=== PATIENT | male | born 1955 | race Caucasian/White ===

== ENCOUNTER 2023-05-12 07:08 | Outpatient (OUT) | payer MEDICARE, OTHER, SELFPAY ==
[2023-05-12 07:58] LABS: Basophils Absolute Auto 0.1 10^3/uL (0.0-0.1); Basophils Percent Auto 0.3 % (0.2-2.0); Eosinophils Percent Auto 0.1 % (0.9-7.0); Hematocrit 47.6 % (42.0-54.0); Hemoglobin 15.7 g/dL (14.0-18.0); Immature Granulocytes Pct Auto 1.1 % (0.0-0.5); Lymphocytes Absolute Auto 1.6 10^3/uL (1.2-3.8); Lymphocytes Percent Auto 8.5 % (20.5-60.0); Mean Corpuscular Hemoglobin 32.9 pg (25.9-34.0); Mean Corpuscular Volume 99.8 fL (80.0-94.0); Mean Platelet Volume 10.9 fL (9.5-13.5); Monocytes Absolute Auto 0.8 10^3/uL (0.3-0.8); Neutrophils Absolute Auto 16.1 10^3/uL (1.4-6.5); Platelet Count 247 10^3/uL (150-450); Red Blood Count 4.77 10^6/uL (4.70-6.10); Red Cell Distribution Width 13.2 % (11.0-15.0); White Blood Count 18.7 10^3/uL (4.0-11.0)
[2023-05-12 11:03] LABS: Estimated Average Glucose 120 mg/dL; Glycohemoglobin A1C 5.8 % (4.5-6.2)
[2023-05-12 13:02] LABS: Alanine Aminotransferase 26 U/L (16-63); Albumin Globulin Ratio 1.2; Albumin Level 3.9 g/dL (3.4-5.0); Alkaline Phosphatase 104 U/L (46-116); Anion Gap 14.8; Aspartate Amino Transferase 20 U/L (15-37); BUN Creatinine Ratio 19.3; Bilirubin Total 0.7 mg/dL (0.2-1.0); Calcium 8.7 mg/dL (8.5-10.1); Carbon Dioxide 27.1 mmol/L (21.0-32.0); Chloride 101 mmol/L (98-107); Chol HDL Ratio 2.4; Cholesterol 164 mg/dL (<=200); Estimated GFR (African America 50 (>=60); Estimated GFR (Non-African Ame 41 (>=60); Free T3 2.55 pg/mL (2.18-3.98); Globulin 3.3 g/dL; Glucose 134 mg/dL (74-106); HDL Cholesterol 69 mg/dL (40-60); Potassium 4.9 mmol/L (3.5-5.1); Sodium 138 mmol/L (136-145); Total Protein 7.2 g/dL (6.4-8.2); Triglycerides 38 mg/dL (<=150); VLDL CHOLESTEROL 7.6 mg/dL
[2023-05-13 10:11] LABS: Insulin 63.6 uIU/mL (2.6-24.9)
== END 2023-05-12 07:09 | disposition home or self-care (01) ==
LOC: LAB 07:17
PROVIDERS: PCP Family Medicine; Visit Provider Family Medicine
DX: M17.9 Osteoarthritis of knee, unspecified (principal); E78.01 Familial hypercholesterolemia; E78.5 Hyperlipidemia, unspecified; I10 Essential (primary) hypertension; R73.09 Other abnormal glucose
CPT/HCPCS: 36415; 80053; 80061; 83036; 83525; 84436; 84443; 84481; 84550; 85025; G0103

== ENCOUNTER 2023-06-26 07:13 | Outpatient (OUT) | payer MEDICARE, OTHER, SELFPAY ==
--- OUTSIDE RECORDS SUMMARY | 2023-06-26 07:17 | XMS_ITS | CCD ---
Author Name Unknown Address [address] [place] [address] Organization [facility] Care Team Providers Care Metallurgical Specialist Name Role Phone ROXANE ., DR LAUREANO Attending Unavailable HOY ., DR LAUREANO Admitting Unavailable HOY ., DR LAUREANO Primary Care Unavailable HOY ., DR LAUREANO Consulting Unavailable HOY ., DR LAUREANO Admitting Unavailable HOY ., DR LAUREANO Primary Care Unavailable HOY ., DR LAUREANO Consulting Unavailable CATALINOY ., DR LAUREANO Attending Unavailable Georgi Betts Primary Care Physician WALE CALIX Attending Unavailable WALE CALIX Admitting Unavailable WALE CALIX Referring Unavailable WALE CALIX Admitting Unavailable WALE CALIX Referring Unavailable WALE CALIX Attending Unavailable WALE CALIX Attending Unavailable WALE CALIX Referring Unavailable Allergies Allergy Classification Reported Allergen(s) Allergy Type Date of Onset Reaction(s) Facility (2 sources) Angiotensin-conv erting enzyme inhibitor agent; Translations: [VERENICE inhibitors] Drug allergy Eruption of skin (disorder) [facility] (2 sources) Sulfamethoxazole ; Translations: [sulfamethoxazol e] Drug Allergy Fever (finding), Eruption of skin (disorder) [facility] Medications Current Medications Medication Drug Class(es) Dates Sig (Normalized) Sig (Original) 8 hr acetaminophen 650 mg extended release oral tablet (1 source) Start: 04-29-2018 take 2 tablets by mouth twice daily acetaminophen 650 mg oral tablet, extended release 1,300 mg = 2 tab(s), Oral, BID, Refills(s) 0, Arthritis Start Date: 04/29/18 Status: Ordered aspirin 81 mg delayed release oral tablet (1 source) Platelet Aggregation Inhibitor, Nonsteroidal Anti-inflammatory Drug Start: 04-29-2018 take 1 tablet by mouth once daily aspirin 81 mg Oral EC Tab 81 mg = 1 tab(s), Oral, Daily, Refills(s) 0, Prophylaxis Start Date: 04/29/18 Status: Ordered atorvastatin 10 mg oral tablet (1 source) HMG-CoA Reductase Inhibitor Start: 04-29-2018 take 1 tablet by mouth once daily atorvastatin 10 mg Tab 10 mg = 1 tab(s), Oral, Daily, Refills(s) 0, High cholesterol Start Date: 04/29/18 Status: Ordered Fiber Tab (1 source) Start: 05-20-2018 take 1 tablet by mouth once daily Fiber Tabs 1 tab, Oral, Daily, Constipation Start Date: 05/20/18 Status: Ordered doxepin hydrochloride 25 mg oral capsule (1 source) Tricyclic Antidepressant Start: 04-29-2018 take 1 capsule by mouth once daily at bedtime doxepin 25 mg Cap 25 mg = 1 cap(s), Oral, Once a day (at bedtime), Refills(s) 0, Sleep Start Date: 04/29/18 Status: Ordered furosemide 20 mg oral tablet (1 source) Loop Diuretic Start: 04-29-2018 take 1 tablet by mouth once daily furosemide 20 mg Tab 20 mg = 1 tab(s), Oral, Daily, Refills(s) 0, diuretic/water pill Start Date: 04/29/18 Status: Ordered meloxicam 15 mg oral tablet (1 source) Nonsteroidal Anti-inflammatory Drug Start: 04-29-2018 take 1 tablet by mouth once daily meloxicam 15 mg Tab 15 mg = 1 tab(s), Oral, Daily, Refills(s) 0, Arthritis Start Date: 04/29/18 Status: Ordered 24 hr metoprolol succinate 200 mg extended release oral capsule (1 source) beta-Adrenergic Raquel Start: 04-29-2018 take 1 capsule by mouth at bedtime metoprolol succinate 200 mg oral capsule, extended release 200 mg = 1 cap(s), Oral, Bedtime, Refills(s) 0, High blood pressure Start Date: 04/29/18 Status: Ordered predniSONE 5 mg oral tablet (1 source) Start: 04-29-2018 take 1 tablet by mouth once daily predniSONE 5 mg Tab 5 mg = 1 tab(s), Oral, Daily, Refills(s) 0, Arthritis Start Date: 04/29/18 Status: Ordered Problems Active Problems Problem Classification Problem Date Documented Date Episodic/Chronic Diabetes mellitus without complication (2 sources) Impaired fasting glucose; Translations: [Other abnormal glucose] Onset: 05-26-2022 Episodic Disorders of lipid metabolism (7 sources) Familial hypercholesterolemia; Translations: [Hyperlipidemia, unspecified] Onset: 05-22-2022 Chronic Essential hypertension (3 sources) Essential (primary) hypertension; Translations: [Essential hypertension] Onset: 09-17-2022 Chronic Gout and other crystal arthropathies (2 sources) Gout, unspecified; Translations: [Gout] Chronic Osteoarthritis (2 sources) 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; Translations: [Polyosteoarthritis, unspecified] Chronic Other aftercare (1 source) Follow-up orthopedic assessment; Translations: [Aftercare following joint replacement surgery] Chronic Other connective tissue disease (1 source) Artificial knee joint present; Translations: [Presence of left artificial knee joint] Chronic Other nervous system disorders (1 source) Postoperative pain ; Translations: [Other acute postprocedural pain] Episodic Other non-traumatic joint disorders (1 source) Pain in left knee; Translations: [Pain of left knee joint] Episodic Past or Other Problems Problem Classification Problem Date Documented Da te Episodic/Chronic Other non-traumatic joint disorders (1 source) Pain in unspecified joint; Translations: [PAIN IN UNSPECIFIED JOINT] Onset: 05-26-2022 Episodic Other screening for suspected conditions (not mental disorders or infectious disease) (1 source) Encounter for screening for malignant neoplasm of prostate; Translations: [ENC SCREEN MALIG NEOPLASM PROSTATE] Onset: 05-26-2022 Episodic Results Test Name Value Interpretation Reference Range Facil ity OT - Assessmentson 3 OT - Assessments [id number] 5#1.00CD:127 Normal [facility] OT - Home Exercise Programon 01-09-2023 OT - Home Exercise Program [id number] 5#1.00CD:127 Normal [facility] OT - [place] 01-07-2023 OT - Orders [id number]# 1.00CD:127 [facility] OT - Assessmentson 3 OT - Assessments [id number] 4#1.00CD:127 [facility] OT - Consentson 12-31-2022 OT - Consents [id number] 8#1.00CD:127 [facility] Consent for Treatmenton 12-13 Consent for Treatment [id number] #1.00CD:127 [facility] OT - [place] 12-29-2022 OT - Orders [id number] #1.00CD:127 [facility] PT - Progress Noteson 2022 PT - Progress Notes [id number] #1.00CD:127 [facility] PT - Assessmentson PT - Assessments [id number] #1.00CD:127 [facility] PT - Progress Noteson 2022 PT - Progress Notes [id number] 2#1.00CD:127 [facility] PT - Progress Noteson 2022 PT - Progress Notes [id number] 67#1.00CD:127 [facility] PT - Home Exercise Programon 10-16-2022 PT - Home Exercise Program [id number] #1.00CD:127 [facility] PT - [place] 10-16-2022 PT - Orders [id number] 0#1.00CD:127 [facility] Coding Summary.on 10-14-2022 Coding Summary. CD:[id number] Ww+PGhlYWQ+QL1MBFMzI 84cnXHytS5qI3IPXPjWT ywgQVBQTElOSyIgbmFtZ S4xlJVhJXQg IC8+WM3pQAClVqrsrURz k2O8cXP2F36din9hMRxh uRJ5WMBeBlDywdrgo5ip lZr9VHrlDsdbUtEf QWLoaW17ASE5xB38Nf37 fYFzdFUyn2zamUq4GjLs QGIhUWV1gRunCTbxx1Om CSNsG09byWVbs9G2 IGNvbGxhcHNlOyBlbXB0 oW1rQAxpjojbm2alafhm Inj8ia66iSVss3A1wYJ6 W8MwlyF6KRKweFWz YtapfAXEdU6tbiedg6hf wedcXwEvQXSlGSy0JBz2 QOPwaJoyQjQwGS58SCI4 CSWzttBeV7OnHLWk iGtsEmC1k9B9Dr1ZB9NI GqocM1NRJUJSBUlejJJ+ IV74cp38H0CkDzrkLeq7 DSYqBNK6rQP3uN3c SAUtDGuje3W1oXA5S2Md raRxtb0zj7cfKXObJGqz E84duPRjh9Z8SHSuvZU2 GHCusRuvHgZkxA13 Oyc+RJBkpOode9XlMpuv i8tud1zjuPw8RtvnEMTb bdGjnQjoURG4f8QsGc5x CYUgjQZ6iDF7zJ0k HgMqDrU6JRlqU211YmNe nLBsFysbI31wH6AbmYL+ CCPdIfy9LVWqcJjrKO3g I8XxJCAbgfkkxMSh eEgoVB9cBWMehgalNYKj xN8qKOEjP9j8KfOhQvW4 QWjmM3JcAAVadetlHt94 fB3xLnRoGlB4KCzu M5GywxI3BLVeiVTtABsj YFA7I52vp7K2CGMfUWJo ULD1nQM3pV7adJweyize bGVmdDsgdmVydGlj QAgnKRhmE914BJQmgWgd PkNvZGluZyBEYXRlOiAg MDUvMDIvMjAyMzwvdGQ+ GYQtORW2gZpyOTGa dGNgERavIq4uoKtetLka AH3fBYRlieqlJDUlbZ3a FOFebIUviOeyPX1kAMCa scime140AhIqBGO0 IHCexPVpC8QaqP1tVjDv CMNcIPKoA3BbrVZrPAyd P363TZkoJvC8DMDitlFl S5WeIQFjxYzvBrT8 i0T5Jr9Nc8HxyyujQ7Jg nSLoJiOcCzwbZXv6N6Lw PjwvdHI+ES52MFDeTM81 MWv7CPM0pHdhTWmj JIZtE9BxiY4gQrSzPSPi ZGRkOyc+PHRhYmxlIHdp ZHRoPScxMDAlJyBzdHls PX3uXo1wWILyIKVi gGxdwWNkBrXjj2rdEBIk NLxyNK0vkLykL0ZdaAO7 WZPpw4k9Vr49J19wR3Bm dXA+LDOdcAU4vBE9 vN1zWpCrMrZ9KThiB615 NzBzcJYxUjphl2iqq5qp vCm4DmN1UKJfmtVzdMrh JTT0j6RwUg97C37q IHdpZHRoPSIxNSUiIHZh sUtqpp6bqE3sDc7+PGNv tZJ0dPL8tK9xRuAuVaE4 UCexY832NoXwyLIx Lamfv0qov7oohAa5DdUe RNOgygGdqRmaWPD2h5Yz Wp26G7XrvTljy3DeZuo5 vs36eSIoh0M9qNY2 R8GoNEGjffzvuAOvoQhj BS8vEKMolcmwUUQvuO3t CHYtQ4n0RcJqPaO9HVpx I0TosbB5GAAtxLRv IEFviCHOeV0bgrpfc7pm lfivTwHhEHOeJJu8SWn5 MTJezUraZvEwEGW2AoQ3 XJO0oREovZ6vaIxn vhzyuN4pIwp+SZO2lTId nYCSAI7oOtjoiJI+PHRk QRB5gEpcCGybAJFpfU6a ALQsC8q9HoZoEyN6 DRkhY7MvddH8QEVwyFEg LZSmgHQLtQ1vnupsj4sq yoxbFnChGVNjASq6RRx7 LWFsaWduOiBsZWZ0 WlN0MHI4kJRxzE1fiZzq avxnbW1tIxq+QmlydGgg LFF7ZVr6V5BwCxg6IPKf qVxoDK3stYGbARwd Bi6ziKvilMisBM7sXSQj lausj528AlObo9ewCBZi gORbOArzNJR4K98ov9I2 SUHvXTVlXYC4eJT2 lB2olFfhxnfdnPPtuUzx bdJegMnbIXloNWagJ649 VHUvgGynYdMdBSo4W2Se Oym4ZCOxyRmwOS6m aSXuGLzbXx0akMgibItq EG3fCMEwtkjuz172RxRh t6ayBQGkiVKcJFycLXO2 E91du5I7YKThNBSw MYB7oAM2lJ7gdCpmtwbt bGVmdDsgdmVydGljYWwt DQysW403QASztIbpFyRo sGy1A5ExJvu0GCLh bLchAF7dnCUlVHahBs2c iVwwsSatPO1sFFRtzzdn j382XoQwy1adGFKljRFs WLdxLSF5O83uo3Z5 RKCaKLXjLNT0jEN3dS9b bGlnbjogbGVmdDsgdmVy xFgbTQvtVHtuC412OLTh cDsnPlBhdGllbnQg NZmbTKp4M8EvDczrhDF+ UW69AXHeCC07tVYkoNQp t8jziJg8CqBtJFNrDXO3 bIlcUMvnx9ShHEVo D25hiNAxb0B6AKMgwMow zQPcLlDjkTD0nA0iGQhv kwpua1xzdzxxQruvi6rm ir92sA48X11yCIaj ZHRoPSIzMCUiIHZhbGln ob0geN0ePu0+PGNvbCB3 yNM6aM1xFUEtPsN5NFkf O428KoKpqVZzWisy a8jmh9sjwKp8AlT5WLGl paQjyQmnNCY1r3LuAf37 S33eASbjTBFbOIJsGIXy NNCcbHffxg2ymY7e Ii8+FXPluXQ9jRJ6xI0s MmNpXgQ8LQokQ076KoPw jTAmMsqyI41kZ7KmgTK+ SAYnPir1EDCvsLam LR5qlJXkCIazXx3lNEV0 SzPkDcCgAUbsS5MhZQZr npwvuamlaUX4JPAdMQOe uY27Yx5jpXffLGPk ySHIgR0pqhoqb0bxibpj FaTgDERqREx4AGy2RXBh rNtmOjXzQFO9EzT4MWW7 gJLygW1ldMblvuuu uY3bX8VcLVThzvuwRw30 hA4kQgSgOgQ5GVuwRot+ UklDSEFSRCwgSkFNRVMg UjwvdGQ+PHRkIHN0 zIzhKTyjMZPvhJ7kPLMa K5e7ItQwNkN5TIeoI6Fx HSWsoondTi45uQ8pQfJd CzD9EAypN6BifnQ6 YUXddWIwZGlpTWR4P25w q7B6VPAmSVCkEDW4gVP9 nJ0pdLtslvmboKUggQbo dmVydGljYWwtYWxp J374BAUlmYjzYzD0RbS6 JgT7MYC9P2GdOif8XQDh kNjdIL7cfWEgLTnwVq8c rBizoPdcDW1mYCVw kfqwTUHwrM8oBTJvoLQh pHerYS5jEENgtxsjy201 YvLlXRT9HEQidGJlW9Ep mN6pDkQsLNDgJEBv D4OdfTMgVDdeN909FWrs YgH8XNLjnfUsX6HkDYKr wBsyInH2g5O4Zv53MLVI ZWFyczwvdGQ+PHRk NKJ5sLhaJKyeUAJgwM6t NQWmB5y1PzWlIoK1PUbm E5ZoZJPtvizoQw87eQ0c YaTfSdP8JElfC0Iu wxM5RBFevMLrKGnuMMT9 X39vk4A5NFYpGCFoCEM8 pZL0rF2buSqxologoACq dDsgdmVydGljYWwt HYafR320JJFuqLaqBe0w fVU7C6EyXlx1DHXsbMoi EC8vtDGdPVgxBp0eyCtf rIjlRC1kQAQbvvey RCGkiQ2tOAHxlYHysRyh GS3gJGUfvpbyr155AeZp GSF6LJXffTFlN4ZrsR3a JgYyEIFcXMVdU8Mr wMOgWCnjX480XNjwVvB2 PFHttvRzI2PiLNJbgFlu RtB9o9H5Fc5DLTE2bdHs zey2Z1VeXyaqkDB+ RL94PETlNV74tXCwsHVw v4rqfZw5VgPuIHVwYMN2 iUodRTpgz2WyCWMtX89w oTFlv6H4FTQtcGtb bRTzVqViuBR8kW0qWWxv bjpor3pwqcegUxmet0vj me07iM64C71dKChtPTGg PSIzMCUiIHZhbGln jr6rgO8bYx9+PGNvbCB3 cXG5eT7bUvThKqE5OZix K891HtHwrNRhAtmdh5me m0brtXw2ChSuKVTs hmTwcUgySIU0y4LmVq97 U39sGLtxJVHfJAOpQPFu SUKeyAbmpk9lvZ2eSb9+ MI8fy7ukoc42lC46 dHI+JBDhLKU2cRteOKss FGYspV3qCNyyEuA4YAJy HyKooY58yBElRUmnVt9j yCcfxCqlGW2rTOZo gclvg184EtYpf7zzOKVj dDQsFJxvPVS9A37hd7F0 KFJkCYXaAUX0gCB8oJ7d bGlnbjogbGVmdDsg apKhrKgwRLcmSIuyW758 YVChlAuuJdNhtAUgW1dn knWOQF9nYjdcuAA+PHRk OBJ6lLnsLBlzZDFu nC2rNCMnF7y8AmSdYhW0 TBbyT6YgpzD2QWEvhQJj EUQfmQGKcU1eyrpkm8gf cjogIzAwMDAwMDt0 JUk7NCMhcSmpSlHwNWT3 YjR8UUH9vIJmoF4zgNea vjvlrZ2qPnz+RklOOjwv dGQ+FFGgADH9kDbh WEpoWSJsvC8qYRBuM4o7 PzDlVlX1TXraB6IhtvY4 HVLvzHVqUCFuhUWQfB7i vssyw4muptoaFlDw PVUrWEb4FZv0VOMsoUsg DdQuTSB0CwK2VBU5cMVd lC6wtYedezggiN7aItq+ TVJOOjwvdGQ+PHRk KGR0oPupVPssTOLiqI2v JMCvZ8k6PrHmGzZ0STji J7HpsmD7WCClyOLhKEUu oJAClL7vdpsqg8an jjprKyEzJGCjNBn4GId3 JVNyhMntOdDdCDM2VbQ6 RPM4hYPbwM4bxGrwkfbj lY3dDki+ZDZ6EVT1 AW43AD79A2OkGtfsyEDl bGU+PHRhYmxlIHdpZHRo ACrlKQLwGjFzqCbmBP2p Tr2eHQSqLUAolAor cHNlOiBj (more content not included)... Normal [facility] PT - Assessmentson PT - Assessments [id number] #1.00CD:127 Normal [facility] PT - Consentson 10-14-2022 PT - Consents [id number] #1.00CD:127 [facility] Consent for Treatmenton Consent for Treatment [id number] #1.00CD:127 [facility] PT - [place] 10-13-2022 PT - Orders [id number] 78#1.00CD:127 [facility] CBC AUTO DIFFon 09-11-2022 BASO # 0.2 103/ul Critically high 0.0-0.[address] [facility] Comment on above: Performed By: #### L IPID, CMP, URIC #### [facility] [address] [place] [address] Dr. Mark Macdonald Basophils/100 WBC (Bld) 1.6 % Normal 0.2-2.0 [facility] Comment on above: Performed By: #### L IPID, CMP, URIC #### [facility] [address] [address] [address] Mark Macdonald EO # 0.8 103/ul Critically high 0.0-0.[address] [facility] Comment on above: Performed By: #### L IPID, CMP, URIC #### [facility] [address] [address] [address] Mark Macdonald Eosinophils/100 WBC (Bld) 7.4 % Critically high 0.9-7.0 [facility] Comment on above: Performed By: #### L IPID, CMP, URIC #### [facility] [address] [place] [address] Dr. Mark Macdonald Erythrocyte distribution width (RBC) [Ratio] 13.2 % Normal 11.0-15.0 [facility] Comment on above: Performed By: #### L IPID, CMP, URIC #### [facility] [address] [place] [address] Dr. Mark Macdonald Hematocrit (Bld) [Volume fraction] 45.9 % Normal 42.0-54.0 [facility] Comment on above: Performed By: #### L IPID, CMP, URIC #### [facility] [address] [place] [address] Dr. Mark Macdonald Hemoglobin (Bld) [Mass/Vol] 14.9 g/dL Normal 14.0-18.0 [facility] Comment on above: Performed By: #### L IPID, CMP, URIC #### [facility] [address] [place] [address] Dr. Mark Macdonald IG # 0.12 10e3/ul Critically high 0.00-0.03 [facility] Comment on above: Performed By: #### L IPID, CMP, URIC #### [facility] [address] [place] [address] Dr. Mark Macdonald IG % 1.1 % Critically high 0.0-0.5 [facility] Comment on above: Performed By: #### L IPID, CMP, URIC #### [facility] [address] [place] [address] Dr. Mark Macdonald LYMPH # 2.0 103/ul Normal 1.2-3.8 [facility] Comment on above: Performed By: #### L IPID, CMP, URIC #### [facility] [address] [place] [address] Dr. Mark Macdonald Lymphocytes/100 WBC (Bld) 19.1 % Critically low 20.5-60.0 [facility] Comment on above: Performed By: #### L IPID, CMP, URIC #### [facility] [address] [place] [address] Dr. Mark Macdonald MANUAL DIFF REQ NO Normal [facility] Comment on above: Performed By: #### L IPID, CMP, URIC #### [facility] [address] [place] [address] Dr. Mark Macdonald MCH (RBC) [Entitic mass] 30.8 pg Normal 25.9-34.0 [facility] Comment on above: Performed By: #### L IPID, CMP, URIC #### [facility] [address] [place] [address] Dr. Mark Macdonald MCHC (RBC) [Mass/Vol] 32.5 g/dL Normal 29.9-35.2 [facility] Comment on above: Performed By: #### L IPID, CMP, URIC #### [facility] [address] [place] [address] Dr. Mark Macdonald MCV (RBC) [Entitic vol] 94.8 fL Critically high 80.0-94.0 [facility] Comment on above: Performed By: #### L IPID, CMP, URIC #### [facility] [address] [place] [address] Dr. Mark Macdonald MONO # 0.9 103/ul Critically high 0.3-0.[address] [facility] Comment on above: Performed By: #### L IPID, CMP, URIC #### [facility] [address] [place] [address] Dr. Mark Macdonald Monocytes/100 WBC (Bld) 8.8 % Normal 1.7-12.0 [facility] Comment on above: Performed By: #### L IPID, CMP, URIC #### [facility] [address] [place] [address] Dr. Mark Macdonald NEUT # 6.6 103/ul Critically high 1.4-6.[address] [facility] Comment on above: Performed By: #### L IPID, CMP, URIC #### [facility] [address] [place] [address] Dr. Mark Macdonald Neutrophils/100 WBC (Bld) 62.0 % Normal 43.0-75.0 [facility] Comment on above: Performed By: #### L IPID, CMP, URIC #### [facility] [address] [address] [address] Mark Macdonald Platelet mean volume (Bld) [Entitic vol] 10.9 fL Normal 9.5-13.5 [facility] Comment on above: Performed By: #### L IPID, CMP, URIC #### [facility] [address] [address] [address] Mark Macdonald PLT 238 103/ul Normal 150-450 [facility] Comment on above: Performed By: #### L IPID, CMP, URIC #### [facility] [address] [address] [address] Mark Macdonald RBC 4.84 106/ul Normal 4.70-6.10 [facility] Comment on above: Performed By: #### L IPID, CMP, URIC #### [facility] [address] [address] [address] Mark Macdonald WBC 10.6 103/ul Normal 4.0-11.0 [facility] Comment on above: Performed By: #### L IPID, CMP, URIC #### [facility] [address] [address] [address] Mark Macdonald FREE T3on 09-11-2022 FREE T3 2.85 pg/mlL Normal 2.18-3.98 [facility] Comment on above: Performed By: #### C MP, FT3, T4, LIPID, TSH #### [facility] [address] [address] [address] Mark Macdonald GLYCOHEMOGLOBIN A1Con 2022 ADA RECOMMENDATION SEE BELOW Normal [facility] Comment on above: Result Comment: ADA RECOMMENDED LIMIT 4.0 - 6.0 ADA THERAPEUTIC TARGET < 7.0 ACTION SUGGESTED > 7.0 Performed By: #### L IPID, CMP, URIC #### [facility] [address] [place] [address] Dr. Mark Macdonald Glucose [Mass/Vol] 134 mg/dL Normal [facility] Comment on above: Performed By: #### L IPID, CMP, URIC #### [facility] [address] [address] [address] Mark Macdonald HbA1c (Bld) [Mass fraction] 6.3 % Critically high 4.5-6.2 [facility] Comment on above: Performed By: #### L IPID, CMP, URIC #### [facility] [address] [address] [address] Mark Macdonald LIPID PROFILEon 09-11-2022 CHOL-HDL RATIO NORM SEE BELOW Normal [facility] Comment on above: Result Comment: 3.3 - 4.4 LOW RISK 4.4 - 7.1 AVERAGE RISK 7.1 - 11.0 MODERATE RISK >11.0 HIGH RISK Performed By: #### C MP, FT3, T4, LIPID, TSH #### [facility] [address] [address] [address] Mark Macdonald Cholesterol [Mass/Vol] 154 mg/dL Normal <=200 [facility] Comment on above: Performed By: #### C MP, FT3, T4, LIPID, TSH #### [facility] [address] [address] [address] Mark Macdonald Cholesterol in HDL [Mass/Vol] 61 mg/dL Critically high 40-60 [facility] Comment on above: Performed By: #### C MP, FT3, T4, LIPID, TSH #### [facility] [address] [address] [address] Mark Macdonald Cholesterol in LDL [Mass/Vol] 80.4 mg/dL Normal [facility] Comment on above: Performed By: #### C MP, FT3, T4, LIPID, TSH #### [facility] [address] [address] [address] Mark Macdonald Cholesterol.total/Cho lesterol in HDL [Mass ratio] 2.5 {ratio} Normal [facility] Comment on above: Performed By: #### C MP, FT3, T4, LIPID, TSH #### [facility] [address] [address] [address] Mark Macdonald HDL NORMAL > or = 60 mg/dl - LOW CARDIOVASCULAR RISK <40 mg/dl - HIGH CARDIOVASCULAR RISK Normal [facility] Comment on above: Performed By: #### C MP, FT3, T4, LIPID, TSH #### [facility] [address] [address] [address] Mark Macdonald LDL CALC NORMAL SEE BELOW Normal [facility] Comment on above: Result Comment: <100 mg/dl OPTIMAL 100 - 129 mg/dl NEAR OR ABOVE OPTIMAL 130 - 159 mg/dl BORDERLINE HIGH 160 - 189 mg/dl HIGH >190 mg/dl VERY HIGH Performed By: #### C MP, FT3, T4, LIPID, TSH #### [facility] [address] [address] [address] Mark Macdonald Triglyceride [Mass/Vol] 63 mg/dL Normal <=150 [facility] Comment on above: Performed By: #### C MP, FT3, T4, LIPID, TSH #### [facility] [address] [address] [address] Mark Macdonald VLDL CALC 12.6 mg/dL Normal [facility] Comment on above: Performed By: #### C MP, FT3, T4, LIPID, TSH #### [facility] [address] [place] [address] Dr. Mark Macdonald PROF 14(COMP METB)on 023 Albumin [Mass/Vol] 3.8 g/dL Normal 3.4-5.0 [facility] Comment on above: Performed By: #### C MP, FT3, T4, LIPID, TSH #### [facility] [address] [place] [address] Dr. Mark Macdonald Albumin/Globulin [Mass ratio] 1.3 {ratio} Normal [facility] Comment on above: Performed By: #### C MP, FT3, T4, LIPID, TSH #### [facility] [address] [address] [address] Mark Macdonald ALP [Catalytic activity/Vol] 105 U/L Normal 46-116 [facility] Comment on above: Performed By: #### C MP, FT3, T4, LIPID, TSH #### [facility] [address] [address] [address] Mark Macdonald ALT [Catalytic activity/Vol] 20 U/L Normal 16-63 [facility] Comment on above: Performed By: #### C MP, FT3, T4, LIPID, TSH #### [facility] [address] [place] [address] Dr. Mark Macdonald Anion gap [Moles/Vol] 13.1 mmol/L Normal Th e [facility] Comment on above: Performed By: #### C MP, FT3, T4, LIPID, TSH #### [facility] [address] [place] [address] Dr. Mark Macdonald AST [Catalytic activity/Vol] 18 U/L Normal 15-37 [facility] Comment on above: Performed By: #### C MP, FT3, T4, LIPID, TSH #### [facility] [address] [place] [address] Dr. Mark Macdonald Bilirubin [Mass/Vol] 0.8 mg/dL Normal 0.2-1.0 [facility] Comment on above: Performed By: #### C MP, FT3, T4, LIPID, TSH #### [facility] [address] [place] [address] Dr. Mark Macdonald Calcium [Mass/Vol] 9.2 mg/dL Normal 8.5-10.1 [facility] Comment on above: Performed By: #### C MP, FT3, T4, LIPID, TSH #### [facility] [address] [place] [address] Dr. Mark Macdonald Chloride [Moles/Vol] 101 mmol/L Normal 98-107 [facility] Comment on above: Performed By: #### C MP, FT3, T4, LIPID, TSH #### [facility] [address] [place] [address] Dr. Mark Macdonald CO2 [Moles/Vol] 30.1 mmol/L Normal 21.0-32.0 [facility] Comment on above: Performed By: #### C MP, FT3, T4, LIPID, TSH #### [facility] [address] [place] [address] Dr. Mark Macdonald Creatinine [Mass/Vol] 1.24 mg/dL Normal 0.70-1.30 [facility] Comment on above: Performed By: #### C MP, FT3, T4, LIPID, TSH #### [facility] [address] [place] [address] Dr. Mark Macdonald EGFR-AF SAUDI ARABIAN >60 Normal >=[address] [facility] Comment on above: Performed By: #### C MP, FT3, T4, LIPID, TSH #### [facility] [address] [place] [address] Dr. Mark Macdonald EGFR-NON AF SAUDI ARABIAN 58 mL/min/1.73m2 Critically low >=60 [facility] Comment on above: Performed By: #### C MP, FT3, T4, LIPID, TSH #### [facility] [address] [place] [address] Dr. Mark Macdonald Globulin (S) [Mass/Vol] 3.0 g/dL Normal [facility] Comment on above: Performed By: #### C MP, FT3, T4, LIPID, TSH #### [facility] [address] [place] [address] Dr. Mark Macdonald Glucose [Mass/Vol] 130 mg/dL Critically high 74-106 [facility] Comment on above: Performed By: #### C MP, FT3, T4, LIPID, TSH #### [facility] [address] [place] [address] Dr. Mark Macdonald Potassium [Moles/Vol] 5.2 mmol/L Critically high 3.5-5.1 [facility] Comment on above: Performed By: #### C MP, FT3, T4, LIPID, TSH #### [facility] [address] [place] [address] Dr. Mark Macdonald Protein [Mass/Vol] 6.8 g/dL Normal 6.4-8.2 [facility] Comment on above: Performed By: #### C MP, FT3, T4, LIPID, TSH #### [facility] [address] [place] [address] Dr. Mark Macdonald Sodium [Moles/Vol] 139 mmol/L Normal 136-145 [facility] Comment on above: Performed By: #### C MP, FT3, T4, LIPID, TSH #### [facility] [address] [place] [address] Dr. Mark Macdonald Urea nitrogen [Mass/Vol] 21.0 mg/dL Critically high 7.0-18.0 [facility] Comment on above: Performed By: #### C MP, FT3, T4, LIPID, TSH #### [facility] [address] [place] [address] Dr. Mark Macdonald Urea nitrogen/Creatinine [Mass ratio] 16.9 mg/mg Normal [facility] Comment on above: Performed By: #### C MP, FT3, T4, LIPID, TSH #### [facility] [address] [place] [address] Dr. Mark Macdonald T4on 09-11-2022 T4 [Mass/Vol] 7.80 ug/dL Normal 4.50-12.10 [facility] Comment on above: Performed By: #### C MP, FT3, T4, LIPID, TSH #### [facility] [address] [place] [address] Dr. Mark Macdonald TSHon 09-11-2022 TSH 2.031 uIU/mL Normal 0.358-3.740 [facility] Comment on above: Performed By: #### C MP, FT3, T4, LIPID, TSH #### [facility] [address] [place] [address] Dr. Mark Macdonald PT - Assessmentson 3 PT - Assessments [id number] 3#1.00CD:127 Normal [facility] PT - Home Exercise Programon 08-22-2022 PT - Home Exercise Program [id number] 5#1.00CD:127 Normal [facility] PT - Progress Noteson 2022 PT - Progress Notes [id number] #1.00CD:127 Normal [facility] PT - Assessmentson 3 PT - Assessments [id number] 3#1.00CD:127 [facility] PT - Assessmentson PT - Assessments [id number]# 1.00CD:127 [facility] PT - Home Exercise Programon 07-23-2022 PT - Home Exercise Program [id number] 4#1.00CD:127 [facility] PT - Home Exercise Program [id number]# 1.00CD:127 [facility] PT - Progress Noteson 2022 PT - Progress Notes [id number]# 1.00CD:127 [facility] PT - Progress Notes [id number]# 1.00CD:127 [facility] PT - Home Exercise Programon 07-11-2022 PT - Home Exercise Program [id number] 2#1.00CD:127 [facility] PT - Home Exercise Programon 07-08-2022 PT - Home Exercise Program [id number] 4#1.00CD:127 [facility] Coding Summary.on 07-03-2022 Coding Summary. CD:[id number] Gh0bWw+PGhlYWQ+PE1FV XJuT57jyFAbeR9KW0vNU Q5DFGFOMGYUHH4ZEH3uu DF9GRxqW6QclrBr WlepmBEfXX58YHn8YRF8 xAjjRNjnqK8seCQcK6j7 LaVaFA23mB35TVewIZTu ErM5BqByxnhftLYm U1qyJiAnmHLhEjn+PHRh YmxlIHdpZHRoPScxMDAl JfXnjCxhVV0wUv7uLEYo LWNvbGxhcHNlOiBj v8lnEFMxUIogYQ6ddNst G0NntTO3NLEoz6r2Xd58 dHI+HQStYST1iLdqBWla i841AxQbi0ubCSK6 pKPgYFggDZL6W17en3B5 WSNcLTAsTZS4hQK3aP8r sVxwbufyL4GnqCGrQiO3 IBU5rNNeyA4zmXgp trmdrK4zHue+Q79XUF9K GRKCWP8XXze8X0QzCwgh dHI+AC54RMWjDS31uILl wJJyl6ohxMh9WyIy JTGyMMU2dEjqEJxoh8Nc IRLoI46ofHWao3P1ZWKb rHhtlBTcDuYkfWK9qH5t ZWraghwhp1wmvaqx Qmdei3hirc38lB49U45v PCohGRXzEND7ROCqEFQl xEnagr5eoH4gLy6+IDxj z5mul9kwpLa6KqTk BPZcuzTiwJucLFU9b5Eg La76U2PybCccm4KdPjr2 uq71xZWdn8X7iRZ4IPdm QYCtvV9rDKdhUxS3 MDViEpOboQ38xWIjGUjk Bx5doWskaFcdEO8yXNNg numqMLEllM3iLAPhvCXa pXewQU5wBNFqjswu r623KfWwAIV4XNHhaUKa E2GigE6tHyYtVZSzJIQf M3UuoXOyVWgzS627AScb NnF6KASrniEkG7Cg UAHbjFgyRoL1w7R4Da1O a6EsvjmbYJH6TNwgGXYs GeB0BwHrDfV9N5FeLxx5 FNElwAtxUN0zL3Qv YQIdqqyyvtgyoNO9PLVx MGZkbE34jZDeUEznOb3z v0B2v052RNWwJMUpmQ70 Yd4rxDfqNWScnFSZ vJ6fveexe8ihwvriSnRt QBSlCIa2SPt8UYLqeCrx RoMyYFS5RbK7SKF6uECq jN3egReaoccawF1d Oyc+J76yuS1nMLN3SJZ2 xwszDIHupvFoNO41AM80 K0VwOcjeuTNfqBM+PGRp zxPykEkjPE3eQsYe i8und4HaEZerC0QnCRAc ZPqgVkb3JJLtGQJ6eNZ2 pR6eFEUuNVkdi5T0kQM5 R1JrbbTdpo4hu0hc XVFoMSduB32nbGBit5E5 TEJxeGL0PHUnyFuqRdEn cF18Rbr+DAUevDkdm5Vo Frzaq2wme2qoiZr5 IjMwJSIgdmFsaWduPSJ0 d4PzVl31O76yAQjcJXDq TWTuBJOyKHTxrJetmo5q dO0bVe7+PGNvbCB3 jZN1hG0kZUEsFuY8KKbg P752IjWodOEzMchpn9ys l4bqoGj9UpIsBDLpobDt rOqzASP7w2XeBj46 K45aSVgqYTZjPFGpGDMl TKKijHwkur1sqP7nUa0+ LX9dn1jyaa95iV59qUA+ FDGvMOJ4gXjhUAkk DORrzT2aVXqyLvT4UUPz IvLlwH87rRFvXFopRg8i eEebvUoaQE0hYFJaoluh a163GuYny2alHUMq mJHxAOtcBLQ4W03rr6M7 NFAbJPCrTFO3mHG6dP5m bGlnbjogbGVmdDsgdmVy fHllWLknHYfdJ513 IHRvcDsnPlBhdGllbnQg GgXdXGx2V0JfDnj4HSHj sOhtSX2bhUKcZEnaYy4t fMaoxChuLE2tEXGb upaxi668KxCbu9rtVHMp qGWxYQyuODO9Q33fr2U6 SOZbNAYuVUF8sBE4rC4v bGlnbjogbGVmdDsg beKomGgsBBqjHGykI252 IHRvcDsnPkJpcnRoIERh mMI8VF73OP79kABgo6W9 nLW2H6WcSLBendts bjiuuMW8DTKrCMXzyQ46 Pz4zvFhsZy8mNLChVER1 LSHpkALaR6EafI6xNjSy UBNiYAXlC5JrqZFy IVuiE518OJmrAdE1MFRa ldOxE3MfPRYktTceXuX8 j8X8Xz9AQ6O9YT64JH57 xLFni7O2xAM3E6Zu LCUeqinlchabjXH3VTWm BQGqnW90Dg6lyYwjBe4b OSYcPSD6XMClqLBeS0Dq mQ0lSbGgMUOkNIBb F7AokXJjIUnvV382LLxn DzW8LWDyhtWpD2LrHLWg uIgvLkF1a2Q3Oo2FZHt4 RW23SH68lYSnn5L1 jIB3I2OrXHFyxdhgikvf zPC7FKQgIBCtcC46Mf3b vRfzSl5gTPYiEUE2AZTb kLTiN6WzyN5wWcCb BUGbHQAvN9LyxOVkXSzo V155PTkqSbF2DVCjygGq E9KnUBWxpAqbBkF6d8L7 Hd9KEXYaQM61JFD5 pFB0WH80CY65E8RuXrpt dGFibGU+PHRhYmxlIHdp ZHRoPScxMDAlJyBzdHls KI9bYd3jWXQeOOXk lBxfnLJtIzQxs0ilYVAf QDuiXM5bmMgrI0XeuQQ9 ZCWst3v7Kp41K43mV7Vx dXA+BPYcqCG4cRL9 yK0mMtAkVpU0ZTkeY082 BhXilRFmBricr8okz7qb uXh1EkY1QPXrksFvxAah SXZ5j1NpTe50E58p IHdpZHRoPSIxNSUiIHZh cWdnce3ykU3oGi5+PGNv pUJ4mAP7nV6eUcSmNsI1 PNzcP893BuQznPTq Wbxtq4wbv8xvnUd4PxHw MAIadmXruCedFEM7f0Na Bi88B6MvzDhpj9NyFzy2 hk39sQYgn0A5jNS7 Z0KkCJHaepwwpUWnzJvh TR4pROKnuwxtVTGpfA7e FKYfP0s9OjKgEsJ5GBaw U1PmqjO4HWRceQTw EDwwFSZ5N57oy9P6OYKf UFIdFFA2iLQ6pG1jvWyb bjogbGVmdDsgdmVydGlj LMswIIftK350BUMt eFvwIHXdeA6cYKNpvLGj bYplQF4cZUBifjorJmVH J5tERnUePWzZEBTOJVI6 C9DbWvh7KZAccNug UT5zsELfNDnxJr9eyIbm qXllNI5lBKJtdqptDQJb vP8cSBEplBBipTeyFI5o SBJxwunjk855NxXz TTU1YWGgtQUcQ0WoqA7e SgYwZDPzHTIeJ1YkxEDp KXukI550NQnuHhD4XNLe clKpJ4QnZGClkMnl ZyB8z4S2Gy0lDC3aOu0k LIXpHV12WM30mMVdt5Z1 cBF3Y4MkXRHfusokuthb qWY0PYXtORGgvX27 yBVvKSarVb6kh9D4f136 ZVLvCPQuoX48Ik5ikTng EODfvQFRiW5mdyuoe2bm cjogIzAwMDAwMDt0 AQu0IIBszZxvWwEpRXY9 PpF5TMA3wATqwA5fsNiw jakjdW9zTkw+NjkgWWVh qmE6G1YaNeu0ROAo eAhcKW2szEFkYEjjWa0y cFgcbUbzSV5yELZtgffu QBCxwM8gOFBmjDFknCij AT8vSCIflvxgk677 UsWcWIG9IPBveTLuY9Ns dE4aFiPlAPHxUYFwW5So pQNkJJtqV994QYyqSkZ9 SCFdfwJtY7ZcICMi iUjfXzI4z0Y9Kb8LYXtd PD55DU19sITbf5L8kZT5 Q1NfBAImpdaawhjzcYP4 VTGdBUUxgB60eAQb AQngSj3nb8C4j893UXLo JQGyoE81Gn9dqYqcJEWv nQOJoC2jxzjdn5idniae NzHoZHPlFIz5TRg8 TNJxcUtjTgSaUJH5AcU2 WGS7sLFfjC2ayVtfxaeh qY0sTfk+YnJlnHJwnD7h JS98PP43K9AiEzts dGFibGU+PHRhYmxlIHdp ZHRoPScxMDAlJyBzdHls XI4hYm5xDOIdDEJgvSfz yGZbQuVxh4kgUPDg AClvZF2glBkqC9OskGO5 MQRvm7z4Pv56P14xF7Lt dXA+DFQpkFY6nNV7tK1g CmIkDvF0MUilV826 GaEtwYAzCjqjk5mgf6ok lGa8QcDzJJVckbRioAlk XWT3y5JtQv83O74wMLbx ZHRoPSIyMCUiIHZh jUrwbv7erC9oTt8+PGNv fNT0lET6vS3kYnNqGvJ4 OUmaD253ZqBjtBAnLvkn Z52tU9WeuMR+PHRy Mls3TBMvgDutMT8kmOMh SPmaWu5bNOV5LfDeUgSk OGczS2EiUBZeobfnatwv aPA4UDGySSRlvD77 Zb9bwFhrWi6jPCCxRCC6 JCUvcRJzT4GtvD5rZoGh OROqLNMyB5IioIRwNMsq D146AUckTnD9MLOs xuEtZ4FtGTFvhXxzPvN8 v1P2Cl3OoMnsyIOvTD6c CsViXEp1I0WrYgg9NAMr wLndZI7rhJHmEPot Dl9xnDxxyGqqDF0eIQMy rbttd258RnHpi9obTBQy yPFyTPvqVCX4W19nm6S2 AFCyNZTeMJB1pMR8 uW9paZjfjawszWIjmTzs vbDzrLfxRPteOKlkM340 EWKfbLryGoNLZuy9Z5Wz Ssb0XERyrXaiYT5y fOTtMOsnBy4uaBmbtErq CY9eDDDytdzdo706XaEm m4mmYYCnzLChYAxoEPA7 Y13oz9N6FVZqCCEn EGI2eIE2iU8bcXimeslu bGVmdDsgdmVydGljYWwt XPhnA064UFJbyZgyLx8W Nfq4C0QwBzu7QEIw bXgzST2iqUUwBYblPy0w kCsmsCyvVO2eHVLsjgxl x207XnBax0bvLXAixXHt GJsdLXP5K69sp0Z0 FOJhXSNeBEK2mQY4aS1j bGlnbjogbGVmdDsgdmVy aXfuTZkmBXdyX556CGVd cDsnPlBheWVyOjwv dGQ+WH13ss65P6TtTyyr Dkj0RKPjSFQ1mBD6eR4o QDEvWTjru7W1aGW2J1Lj irVcws5mb7shXFBq ZTog (more content not included)... Normal [facility] PT - Assessmentson PT - Assessments [id number] 4#1.00CD:127 [facility] PT - Consentson 01-18-2023 PT - Consents [id number] 4#1.00CD:127 Normal [facility] Consent for Treatmenton 06-15 Consent for Treatment [id number] #1.00CD:127 Normal [facility] PT - Orderson 06-30-2022 PT - Orders [id number] #1.00CD:127 [facility] PT - Orders [id number] #1.00CD:127 [facility] PT - Assessmentson PT - Assessments [id number] 5#1.00CD:127 [facility] PT - Orderson 05-30-2022 PT - Orders [id number] 4#1.00CD:127 [facility] INSULINon 05-23-2022 Insulin 40.4 uIU/mL Critically high 2.6-24.[address] [facility] Comment on above: Performed By: #### I NSULIN #### [facility] [address] [place] [address] Dr. Mark Macdonald CBC AUTO DIFFon 05-22-2022 BASO # 0.2 103/ul Critically high 0.0-0.[address] [facility] Comment on above: Performed By: #### L IPID, CMP, URIC #### [facility] [address] [address] [address] Mark Macdonald Basophils/100 WBC (Bld) 1.4 % Normal 0.2-2.0 [facility] Comment on above: Performed By: #### L IPID, CMP, URIC #### [facility] [address] [place] [address] Dr. Mark Macdonald EO # 0.6 103/ul Normal 0.0-0.7 [facility] Comment on above: Performed By: #### L IPID, CMP, URIC #### [facility] [address] [place] [address] Dr. Mark Macdonald Eosinophils/100 WBC (Bld) 5.5 % Normal 0.9-7.0 [facility] Comment on above: Performed By: #### L IPID, CMP, URIC #### [facility] [address] [place] [address] Dr. Mark Macdonald Erythrocyte distribution width (RBC) [Ratio] 14.0 % Normal 11.0-15.0 [facility] Comment on above: Performed By: #### L IPID, CMP, URIC #### [facility] [address] [place] [address] Dr. Mark Macdonald Hematocrit (Bld) [Volume fraction] 46.3 % Normal 42.0-54.0 [facility] Comment on above: Performed By: #### L IPID, CMP, URIC #### [facility] [address] [place] [address] Dr. Mark Macdonald Hemoglobin (Bld) [Mass/Vol] 15.3 g/dL Normal 14.0-18.0 [facility] Comment on above: Performed By: #### L IPID, CMP, URIC #### [facility] [address] [place] [address] Dr. Mark Macdonald IG # 0.20 10e3/ul Critically high 0.00-0.03 [facility] Comment on above: Performed By: #### L IPID, CMP, URIC #### [facility] [address] [place] [address] Dr. Mark Macdonald IG % 1.8 % Critically high 0.0-0.5 [facility] Comment on above: Performed By: #### L IPID, CMP, URIC #### [facility] [address] [place] [address] Dr. Mark Macdonald LYMPH # 2.4 103/ul Normal 1.2-3.8 [facility] Comment on above: Performed By: #### L IPID, CMP, URIC #### [facility] [address] [place] [address] Dr. Mark Macdonald Lymphocytes/100 WBC (Bld) 21.6 % Normal 20.5-60.0 [facility] Comment on above: Performed By: #### L IPID, CMP, URIC #### [facility] [address] [address] [address] Mark Macdonald MANUAL DIFF REQ NO Normal [facility] Comment on above: Performed By: #### L IPID, CMP, URIC #### [facility] [address] [address] [address] Mark Macdonald MCH (RBC) [Entitic mass] 32.3 pg Normal 25.9-34.0 [facility] Comment on above: Performed By: #### L IPID, CMP, URIC #### [facility] [address] [place] [address] Dr. Mark Macdonald MCHC (RBC) [Mass/Vol] 33.0 g/dL Normal 29.9-35.2 [facility] Comment on above: Performed By: #### L IPID, CMP, URIC #### [facility] [address] [place] [address] Dr. Mark Macdonald MCV (RBC) [Entitic vol] 97.7 fL Critically high 80.0-94.0 [facility] Comment on above: Performed By: #### L IPID, CMP, URIC #### [facility] [address] [place] [address] Dr. Mark Macdonald MONO # 1.2 103/ul Critically high 0.3-0.[address] [facility] Comment on above: Performed By: #### L IPID, CMP, URIC #### [facility] [address] [place] [address] Dr. Mark Macdonald Monocytes/100 WBC (Bld) 10.6 % Normal 1.7-12.0 [facility] Comment on above: Performed By: #### L IPID, CMP, URIC #### [facility] [address] [place] [address] Dr. Mark Macdonald NEUT # 6.6 103/ul Critically high 1.4-6.[address] [facility] Comment on above: Performed By: #### L IPID, CMP, URIC #### [facility] [address] [address] [address] Mark Macdonald Neutrophils/100 WBC (Bld) 59.1 % Normal 43.0-75.0 [facility] Comment on above: Performed By: #### L IPID, CMP, URIC #### [facility] [address] [address] [address] Mark Macdonald Platelet mean volume (Bld) [Entitic vol] 10.5 fL Normal 9.5-13.5 [facility] Comment on above: Performed By: #### L IPID, CMP, URIC #### [facility] [address] [address] [address] Mark Macdonald PLT 212 103/ul Normal 150-450 [facility] Comment on above: Performed By: #### L IPID, CMP, URIC #### [facility] [address] [place] [address] Dr. Mark Macdonald RBC 4.74 106/ul Normal 4.70-6.10 [facility] Comment on above: Performed By: #### L IPID, CMP, URIC #### [facility] [address] [address] [address] Mark Macdonald WBC 11.2 103/ul Critically high 4.0-11.[address] [facility] Comment on above: Performed By: #### L IPID, CMP, URIC #### [facility] [address] [place] [address] Dr. Mark Macdonald GLYCOHEMOGLOBIN A1Con 2021 ADA RECOMMENDATION SEE BELOW Normal [facility] Comment on above: Result Comment: ADA RECOMMENDED LIMIT 4.0 - 6.0 ADA THERAPEUTIC TARGET < 7.0 ACTION SUGGESTED > 7.0 Performed By: #### L IPID, CMP, URIC #### [facility] [address] [place] [address] Dr. Mark Macdonald Glucose [Mass/Vol] 126 mg/dL Normal [facility] Comment on above: Performed By: #### L IPID, CMP, URIC #### [facility] [address] [address] [address] Mark Macdonald HbA1c (Bld) [Mass fraction] 6.0 % Normal 4.5-6.2 [facility] Comment on above: Performed By: #### L IPID, CMP, URIC #### [facility] [address] [address] [address] Mark Macdonald LIPID PROFILEon 05-22-2022 CHOL-HDL RATIO NORM SEE BELOW Normal [facility] Comment on above: Result Comment: 3.3 - 4.4 LOW RISK 4.4 - 7.1 AVERAGE RISK 7.1 - 11.0 MODERATE RISK >11.0 HIGH RISK Performed By: #### L IPID, CMP, URIC #### [facility] [address] [address] [address] Mark Macdonald Cholesterol [Mass/Vol] 144 mg/dL Normal <=200 [facility] Comment on above: Performed By: #### L IPID, CMP, URIC #### [facility] [address] [address] [address] Mark Macdonald Cholesterol in HDL [Mass/Vol] 68 mg/dL Critically high 40-60 [facility] Comment on above: Performed By: #### L IPID, CMP, URIC #### [facility] [address] [address] [address] Mark Macdonadl Cholesterol in LDL [Mass/Vol] 62.2 mg/dL Normal [facility] Comment on above: Performed By: #### L IPID, CMP, URIC #### [facility] [address] [address] [address] Mark Macdonald Cholesterol.total/Cho lesterol in HDL [Mass ratio] 2.1 {ratio} Normal [facility] Comment on above: Performed By: #### L IPID, CMP, URIC #### [facility] [address] [address] [address] Mark Macdonald HDL NORMAL > or = 60 mg/dl - LOW CARDIOVASCULAR RISK <40 mg/dl - HIGH CARDIOVASCULAR RISK Normal [facility] Comment on above: Performed By: #### L IPID, CMP, URIC #### [facility] [address] [address] [address] Mark Macdonald LDL CALC NORMAL SEE BELOW Normal [facility] Comment on above: Result Comment: <100 mg/dl OPTIMAL 100 - 129 mg/dl NEAR OR ABOVE OPTIMAL 130 - 159 mg/dl BORDERLINE HIGH 160 - 189 mg/dl HIGH >190 mg/dl VERY HIGH Performed By: #### L IPID, CMP, URIC #### [facility] [address] [address] [address] Mark Macdonald Triglyceride [Mass/Vol] 69 mg/dL Normal <=150 [facility] Comment on above: Performed By: #### L IPID, CMP, URIC #### [facility] [address] [address] [address] Mark Macdonald VLDL CALC 13.8 mg/dL Normal [facility] Comment on above: Performed By: #### L IPID, CMP, URIC #### [facility] [address] [place] [address] Dr. Mrak Macdonald PROF 14(COMP METB)on 022 Albumin [Mass/Vol] 3.9 g/dL Normal 3.4-5.0 [facility] Comment on above: Performed By: #### L IPID, CMP, URIC #### [facility] [address] [place] [address] Dr. Mark Macdonald Albumin/Globulin [Mass ratio] 1.3 {ratio} Normal [facility] Comment on above: Performed By: #### L IPID, CMP, URIC #### [facility] [address] [address] [address] Mark Macdonald ALP [Catalytic activity/Vol] 101 U/L Normal 46-116 [facility] Comment on above: Performed By: #### L IPID, CMP, URIC #### [facility] [address] [address] [address] Mark Macdonald ALT [Catalytic activity/Vol] 16 U/L Normal 16-63 [facility] Comment on above: Performed By: #### L IPID, CMP, URIC #### [facility] [address] [address] [address] Mark Macdonald Anion gap [Moles/Vol] 10.8 mmol/L Normal [facility] Comment on above: Performed By: #### L IPID, CMP, URIC #### [facility] [address] [address] [address] Mark Macdonald AST [Catalytic activity/Vol] 21 U/L Normal 15-37 [facility] Comment on above: Performed By: #### L IPID, CMP, URIC #### [facility] [address] [address] [address] Mark Macdonald Bilirubin [Mass/Vol] 0.5 mg/dL Normal 0.2-1.0 [facility] Comment on above: Performed By: #### L IPID, CMP, URIC #### [facility] [address] [address] [address] Mark Macdonald Calcium [Mass/Vol] 8.5 mg/dL Normal 8.5-10.1 [facility] Comment on above: Performed By: #### L IPID, CMP, URIC #### [facility] [address] [address] [address] Mark Macdonald Chloride [Moles/Vol] 101 mmol/L Normal 98-107 [facility] Comment on above: Performed By: #### L IPID, CMP, URIC #### [facility] [address] [address] [address] Mark Macdonald CO2 [Moles/Vol] 26.2 mmol/L Normal 21.0-32.0 [facility] Comment on above: Performed By: #### L IPID, CMP, URIC #### [facility] [address] [address] [address] Mark Macdonald Creatinine [Mass/Vol] 1.14 mg/dL Normal 0.70-1.30 [facility] Comment on above: Performed By: #### L IPID, CMP, URIC #### [facility] [address] [address] [address] Mark Macdonald EGFR-AF SAUDI ARABIAN >60 Normal >=60 [facility] Comment on above: Performed By: #### L IPID, CMP, URIC #### [facility] [address] [address] [address] Mark Macdonald EGFR-NON AF SAUDI ARABIAN >60 Normal >=60 [facility] Comment on above: Performed By: #### L IPID, CMP, URIC #### [facility] [address] [address] [address] Mark Macdonald Globulin (S) [Mass/Vol] 3.1 g/dL Normal [facility] Comment on above: Performed By: #### L IPID, CMP, URIC #### [facility] [address] [address] [address] Mark Macdonald Glucose [Mass/Vol] 119 mg/dL Critically high 74-106 [facility] Comment on above: Performed By: #### L IPID, CMP, URIC #### [facility] [address] [address] [address] Mark Macdonald Potassium [Moles/Vol] 5.0 mmol/L Normal 3.5-5.1 [facility] Comment on above: Performed By: #### L IPID, CMP, URIC #### [facility] [address] [address] [address] Mark Macdonald Protein [Mass/Vol] 7.0 g/dL Normal 6.4-8.2 [facility] Comment on above: Performed By: #### L IPID, CMP, URIC #### [facility] [address] [address] [address] Mark Macdonald Sodium [Moles/Vol] 133 mmol/L Critically low 136-145 Th [facility] Comment on above: Performed By: #### L IPID, CMP, URIC #### [facility] [address] [address] [address] Mark Macdonald Urea nitrogen [Mass/Vol] 30.0 mg/dL Critically high 7.0-18.0 [facility] Comment on above: Performed By: #### L IPID, CMP, URIC #### [facility] [address] [address] [address] Mark Macdonald Urea nitrogen/Creatinine [Mass ratio] 26.3 mg/mg Normal [facility] Comment on above: Performed By: #### L IPID, CMP, URIC #### [facility] [address] [place], [place] [address] Dr. Mark Macdonald URIC ACID SERUMon 05-22-2022 Urate [Mass/Vol] 5.1 mg/dL Normal 3.5-7.2 [facility] Comment on above: Performed By: #### L IPID, CMP, URIC #### [facility] [id number] Mark Macdonald PT - Assessmentson PT - Assessments [phone] [id number] 0#1.00CD:127 [facility] PT - Home Exercise Programon 05-06-2022 PT - Home Exercise Program [phone] [id number] 0#1.00CD:127 [facility] Encounters Encounter Date Encounter Type Care Provider Facility Start: 12-29-2022 End: 04-15-2023 ambulatory WALE CALIX Facility:[facility] Start: 10-13-2022 End: 12-30-2022 ambulatory WALE CALIX Facility:[facility] Start: 09-17-2022 Encounter for preprocedural laboratory examination DR GEORGI BETTS . [facility] Start: 09-11-2022 End: 09-12-[address] GEORGI BETTS . Facility: Start: 09-11-2022 End: 09-12-2022 Encounter for preprocedural laboratory examination DR GEORGI BETTS . Facility: Start: 06-30-2022 End: 11-20-2022 ambulatory WALE CALIX Facility:[facility] Start: 06-30-2022 End: 11-19-2022 Admission to same day surgery center WALE CAL[facility] Start: 05-22-2022 End: 05-23-[address] GEORGI BETTS . Facility: Procedures Date Procedure Procedure Detail Performing Clinician Start: 05-22-[address] KARLOS BETTS . Comment on above: Performed By: #### [facility] #### [facility] [address] [place] [address] Dr. Mark Macdonald Start: 05-20-2018 Inguinal hernia (disorder) WALE CALIX Comment on above: left Cataract extraction and insertion of intraocular lens WALE CALIX Comment on above: omayra right inguinal herni a repair with mesh WALE CALIX Payers Date Payer Category Payer Medicare [id number] 1961 Unknown [id number] 1961 Unknown [id number] 1955 Unknown [id number] 1955 Unknown [id number] 2.16.84 [id number] 1955 Unknown [id number] 2.16.8 [id number] 1955 Unknown [id number] 2.16.8 [id number] 1955 Unknown [id number] 2.16.8 [id number] Social History Date Type Detail Facility Tobacco smoking status No Smoking Status Entered [facility] Sex Assigned At Male [facility] Evaluation + Plan note Note Date & Type Note Facility Evaluation + Plan note Future Appointments Appointment Date:11/20/2022 09:30:00 AM Scheduled Provider: Location:[facility] [place] Appointment Type:PT 45 (FT) Appointment Date:11/24/2022 10:15:00 AM Scheduled Provider: Location:[facility] [place] Appointment Type:PT Re-Eval 45 (FT) [facility] Hospital course Narrative Note Date & Type Note Facility Hospital course Narrative No data available for this section [facility] Hospital Discharge instructions Note Date & Type Note Facility Hospital Discharge instructions No data available for this section [facility] Progress note Note Date & Type Note Facility Progress note No data available for this section [facility] Summary Purpose Family History No Family History Records FoundNo Family History Records Found Advance Directives No Advanced Directives Records FoundNo Advanced Directives Records Found Additional Source Comments (unrecognized sect ion and content) No Status Records FoundNo Status Records Found INFORMATION SOURCE (unrecogn ized section and content) DATE CREATED AUTHOR 09/19/2022 [facility] DATE CREATED AUTHOR AUTHOR'S ORGANIZ ATION 04/16/2023 [facility] Patient Care team informatio n (unrecognized section and content) Personnel Name: Georgi Betts MD Address: Address: [address] [place] [address] FOR RECORDS PERTAINING TO PATIENTS WHO ARE OR HAVE BEEN ENROLLED IN A CHEMICAL DEPENDENCY/SUBSTANCEABUSE PROGRAM, SOME INFORMATION MAY BE OMITTED. This clinical summary was aggregated from multiple sources. Caution should be exercised in using it in the provision of clinical care. This summary normalizes information from multiple sources, and as a consequence, information in this document may materially change the coding, format and clinical context of patient data. In addition, data may be omitted in some cases. CLINICAL DECISIONS SHOULD BE BASED ON THE PRIMARY CLINICAL RECORDS. [facility]. provides no warranty or guarantee of the accuracy or completeness of information in this document.
[2023-06-26 08:37] LABS: Alanine Aminotransferase 31 U/L (16-63); Albumin Level 3.3 g/dL (3.4-5.0); Alkaline Phosphatase 102 U/L (46-116); Anion Gap 13.9; Aspartate Amino Transferase 20 U/L (15-37); BUN Creatinine Ratio 14.5; Bilirubin Direct 0.2 mg/dL (0.0-0.2); Bilirubin Total 0.6 mg/dL (0.2-1.0); Calcium 8.7 mg/dL (8.5-10.1); Carbon Dioxide 29.4 mmol/L (21.0-32.0); Chloride 100 mmol/L (98-107); Estimated GFR (African America >60 (>=60); Estimated GFR (Non-African Ame >60 (>=60); Globulin 3.4 g/dL; Glucose 106 mg/dL (74-106); Potassium 4.3 mmol/L (3.5-5.1); Sodium 139 mmol/L (136-145); Total Protein 6.7 g/dL (6.4-8.2)
[2023-06-27 04:09] LABS: PSA, Free 0.09 ng/mL; Prostate Specific Ag 0.3 ng/mL (0.0-4.0)
== END 2023-06-26 07:14 | disposition home or self-care (01) ==
LOC: LAB 07:15
PROVIDERS: PCP Family Medicine; Visit Provider Family Medicine
DX: M25.50 Pain in unspecified joint (principal); N40.1 Benign prostatic hyperplasia with lower urinary tract symptoms; I10 Essential (primary) hypertension
CPT/HCPCS: 36415; 80048; 80076; 84153; 84154

== ENCOUNTER 2024-12-13 07:07 | Outpatient (OUT) | payer MEDICARE, OTHER, SELFPAY ==
--- OUTSIDE RECORDS SUMMARY | 2024-12-13 07:09 | XMS_ITS | CCD ---
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 Name Role Phone ROXANE ., DR LAUREANO [...] inhibitors] Drug allergy Eruption of skin (disorder) [facility] (2 sources) Sulfamethoxazole ; Translations: [sulfamethoxazol e] Drug Allergy Fever (finding), Eruption of skin (disorder) [facility] Medications Current Medications Medication Drug Class(es) [...] OT - Assessmentson 3 OT - Assessments [id number] 5#1.00CD:127 [facility] OT - Home Exercise Programon 01-09-2023 OT - Home Exercise Program [id number] 5#1.00CD:127 [facility] OT - [place] 01-07-2023 OT - Orders [id number]# 1.00CD:127 [facility] OT - Assessmentson 3 OT - Assessments [id number] 4#1.00CD:127 [facility] OT - Consentson 12-31-2022 OT - Consents [id number] 8#1.00CD:127 [facility] Consent for Treatmenton 12-13 Consent for Treatment [id number] #1.00CD:127 [facility] OT - [place] 12-29-2022 OT - Orders [id number] #1.00CD:127 [facility] PT - Progress Noteson 2022 PT - Progress Notes [id number] #1.00CD:127 [facility] PT - Assessmentson PT - Assessments [id number] #1.00CD:127 [facility] PT - Progress Noteson 2022 PT - Progress Notes [id number] 2#1.00CD:127 [facility] PT - Progress Noteson 2022 PT - Progress Notes [id number] 67#1.00CD:127 [facility] PT - Home Exercise Programon 10-16-2022 PT - Home Exercise Program [id number] #1.00CD:127 [facility] PT - [place] 10-16-2022 PT - Orders [id number] 0#1.00CD:127 [facility] Coding Summary.on 10-14-2022 Coding Summary. CD:[id number] Ww+PGhlYWQ+OO1PLOGiR 68gcTTivM3fB5SBJSfTG ywgQVBQTElOSyIgbmFtZ T5byPCeHWOc IC8+GV7kFDUlWjfbyTBz x3X4vMD5L07fcu3mPGvt yFW3USGyLoCncvial8gm wIx9USfbUyghKfPs XPEktT83TLB2nP18Vm89 jXYjsFCth1iezEo8HdZs GBWsNFH8aWklUXcye8Gs BSElU29dzIYtx2X0 IGNvbGxhcHNlOyBlbXB0 uT6wWHbztkxvz3gigyub Lsw6ic41yVUhx4X5pVU6 W6LgwyH1QWNxpRWp IhkimZWFnL4oalyzs9ih exgjTkFnJZZaLQw3AGv4 QCQejGlhCiEjWX09JLQ1 BNBmnvEhY3QvTWEo bGrkLnB8l5I3De6NH2CJ FhevA9REDFMVEWitmKE+ ZL40cm61Z2IoDvboKtm6 BSIjKUI0iQA9rI5a UCChGUqnp7Y2yJY4K1Ex yuNhgo5ts5xgOCZfMHrj N89iuGNpo7V1YANyeNB9 AMDvlLgmUgDmgW92 Oyc+QCWmeLbkd2QmTfjw s1wpq7iwyBd6OdtlPUQq lgYqgOzaZYS0a9QyEx3z NKGtwQE8mBW2oS8n YmWgHjJ3EPwlK734YtYi rNGsIeueF08dV5OmlJC+ RWIzSsc4OVDcsHyfPZ3s W4KzNVEktkltiZDy wTilGQ6fDXBykwqiRUBh fB0bQBTyG1k6IaDeBmP5 RHgpD3JfKIJajvjjTx22 mX5jWxTvNkL0HYxp L2FcqfO6CBAjvAQtXSjr VHU3M14cg5V3JZNaTJUp JQP4kVG7hD3nzUvtfmlt bGVmdDsgdmVydGlj LNafDGxyR397QHFnvTmf PkNvZGluZyBEYXRlOiAg MDUvMDIvMjAyMzwvdGQ+ ULVgNEU7sFmhBSDe iRDkCDtqXt5mpUhftSwr ZV8sSWYtnapiAURghK7d DXYtqNHtlCamVY0fIMFu zrpgp479UuQfYUW6 SDZquQWbM7HzoG9kNqEy LCFiPXAmX6GfuPJzJHhy E220SUnhQbO9KGBkxyGr U1FeEWWakUzvGuB8 e7N0Om8Uq1GfruwpW5Tn lHLhIjCgDpdgEQt6K9Zr PjwvdHI+LN17BQLqSJ20 YSr7LDM3aIwdHKws CHBaN2UmmQ0wFzYrSLEm ZGRkOyc+PHRhYmxlIHdp ZHRoPScxMDAlJyBzdHls QX0pRn9hMLAmEKEu lWixiMMgLlSxh8tzOPBt DGiqBD5fdBufC7MoqYY4 XBCcq0s3Jw82Q15pQ5Yy dXA+ODHerVV9qWK5 iR0vQzMlRtU4UEftN909 CtRijGZgLmbxz8sim6ir lRt5ToM0ITLwsvLqnYgp HRP4i4WlOt46M51s IHdpZHRoPSIxNSUiIHZh rMzkvj0adA2dMs4+PGNv oMQ2zXV2bU3bGrVqWvG4 PJxjH588IvYsgPBn Qxkrl7pru6jnaGu4WoXm NLHdrdRkvVcpRJR5m9Xq Xk17M4OtlGikg7FmLcl2 en77fVCat2L3jDN1 H4HvFWBawawvnGXlaZsf TJ8sYVVerxcqPROolN8g CRKnN6v7RwYxHnL8HJvr Q6UnlaQ6LUDqfDSb GJVqwZYTjW8eqyrvu4hv dxxxRxBjCIAePQe4NTy1 XEPuvPxgUxBcYIB5DzR7 VFG1lRPvfL3tqQbv dwwzvL4dZpg+VSD1gMTy xSHOYO9wGyzniIN+PHRk DEA2mIwtXDkkMMAoqG4h EVCgI1k2IaRhStN4 ARotD0EnluJ5DRZrlWAw DPZawIFIaN5nlndak4wr yxbfSiUuQHWaFLq9CEy5 LWFsaWduOiBsZWZ0 UaD7NLW3xQKyhV3qaRhv smcbmA5zVnu+QmlydGgg VRY0JAx8U2QkCjs1DWVj fMslGL4veNXdOVuf Gk0ejAdylRwmQJ6oJKHl olfjq991QxDcl2psTHFq iCBaOMuvEGK5B92ey0G9 FHQgAWHrLJJ9bMD3 iZ9gpHkqdxlwtALoaTje zcIysBroKNdqWJqkP045 BJSdyCydHiWlOYk1J0Ta Wvm1YEJjyXxtRQ6g aCVnITgtDw4tqVhweLur QB0lIZPmwfuwc621ZhXt t8qgECQefXLsYKthPBO8 S49ht5T1UCSaDKMi SOV6mNA2tO7liKxklcbj bGVmdDsgdmVydGljYWwt YXgbR477ERWaqXihOaMs nBx3B8VoAug7JPWr nPvuKX4dxJLmSOdwGo5y iKfimDtoFF3yGRRuudlo t093GeRbp6ysHVOohBZr ZCvzHZQ3H11oa5A0 UZLySXGwTDQ0pDT5sF6y bGlnbjogbGVmdDsgdmVy lBthVEtvOXgwG428MUWf cDsnPlBhdGllbnQg PDqvCDq7B4RhVtmqwKC+ RR99FZBbPO45lYVlfEDo p4xvgAu4RoYaVIZtSTA3 cBhuTLyeb1HiDYPs G23juRPmj0B8FOYgrVno lWWoStWnwWV9nY3uFNux gcvtf5tjulfwDwdvl7zb es64iI13M13gQUuz ZHRoPSIzMCUiIHZhbGln nq0jeA1uUk0+PGNvbCB3 fEZ7bQ4yLVJuWxG3LOhu L380RhKnuMBzFoxh l6ckm1gexNs4YnV7QIWg faNiiSlyCRR2k8ZmSp64 S41fMOigJEDmTLTlDTMs IGLquKgjkd4mxT8e Ii8+VNXtsXG0dEZ8gE7o MdLtHpS6TIclP522GnJr qINeRknjR30tS1PhbHX+ GEXlHbn9TPLfbAdf VZ0vlVXvZEkgWy7tENG8 IhWkFyMmCQhxJ9ClBUYo pbzwqtbqlPH7VSBaQTBb xH47Yg8rtPzyXQYr nRKRiF8srelsv6bahmcs FcNtEHRwNYb1HPp6XBFf xMtyEhErGMK1CdZ9APQ6 cDEfeW3rsFxqvino fX8bT0ClHSRddvwqFv92 lN5qUbGmBbQ4JGadFig+ UklDSEFSRCwgSkFNRVMg UjwvdGQ+PHRkIHN0 qBajLQaqMEOpcR3mVSZk W9v5KkYbLjG7YPqrV3Ni UVNahzljAf41tF2oAuJu VhF1XEqbE7DotyK1 JACrfQCvURapZYD1I48s m0Z4FLThUVEoMIZ1yIS1 rW8nrMtjicuarPRxwGak dmVydGljYWwtYWxp B106KGDtpLkcWgM5XrO2 SiH0XNK9C9ElTht8EILp xJdsDO8nqOOeDJchZe4l cElzyJwfNI2dUNMm npwoAAWtbM9lPBIkgKBi wNznXY3rZYMcjbvbd691 EjGmKOQ3NNYvoVWaH3Jr kS6aDrQkKYUdTQJd S8WewLEwUCpxO538XOgs SaI7YOOineBfG3QaHLFu eYmsZwI8k3C1Aw81BAJP ZWFyczwvdGQ+PHRk AHX5aUhdOBzeDVRimY9f HOZqC4y5RrFlJmH8VRfu N4IcIFExpjrwEo57pK9p DnTxRuE2FKwuC8Ha tiV7EEZduGBtVDplZZP2 Z24yz5J9BQJaTRZjWIZ6 wUD3qK5zfEwynfstnAFt dDsgdmVydGljYWwt XUgoP721ESEwoQgfFv9v qKT1M2WtUav7YGCpsLab RN1hkSCkZRsiFg1dcQnj yEtfCK1cAHIjdiuh EWDbbB4uFXFwaZSsdEip LS8bSDVuuwhfy261LeBd BUJ1OZSptJHeB6RxjZ3p MlDoCJKkITXuH3Ku lCRyFWqpQ355MSwyYdV7 ECColbDnO1QoLLTykWqr YeS9e5I6Vd1UXTC3qwMx agn2M5QqVyxifBM+ CR72IRZnBH08bHZtgSHx q2rhbNf5QyPbOSCeDQY2 eIpvMOhmt5HoMKIlT27u cQDvp8T9PERzdWvi cGLmAtYoxUL1gE6zNPdn zcdhp3nwjwgzZgkeg7lu kz67xO12O75pRHfsJPGq PSIzMCUiIHZhbGln cv4xnX0gDa9+PGNvbCB3 qUH2vU5mSnWuVkS4OVip R169EkJyfQQaIciha4sp q3mktTl5AtOpZNPt cpAfwIcwJUF7a7XoSs63 H29dNIazVIRaPRKuEDIt VUZcqEvech3mbM1sEa6+ NH5qn0cqhl14dB48 dHI+OWHvWFI5lMayCPrr HPDlhB7pBCcjCjX8HFRa KrMlmC92tEAiKAopVr3s sPcvzZzuDC5kYIZj mrivp235IeClh5zmDJAg rNAtXXqaFPX6K80ww7K4 NTVjLGFtVCF6iIM8fU0g bGlnbjogbGVmdDsg lcKkrRlyAHcuWQvqA675 KPInlCpzAjWanWWdB1zw yhOWZY6kFhrqgHB+PHRk XCD1eGrrWMqiKDCn xI7jFWQmB2t6GeWnVjT6 VNheA0JogjP3LVWlcUYo YTIkpHXWcL1oxjsee2bv cjogIzAwMDAwMDt0 ZNd7BYTgxTezHuUiUDA2 OdC1HZF2bIQxlQ3lpUzo rfgrfL2tLfc+RklOOjwv dGQ+HICjQXC5dSwc PMhwLYQknQ1lJJZvH4x1 QqNbYaR2NFdaU1DwxuV2 QOJonPAyKMXzqHBJsE7t quofd2bdlccaMlYk DOXfVKa4QHi5ROQclNsf DzRfZJB0RlP1EOO5kCNi aA5rzBngnlbskC7cTrv+ TVJOOjwvdGQ+PHRk TDH7pIdfQHmfWWBylK7s ENQdH9v8WaJnGlQ4YAci A1OiryS6VOXnzFBtYPKs xGWBqM3uqsgwr1wf fmrdMqOlOFIsQOa6QFx2 RNBvmMbyVyElDZI4OvF1 VDG1rRBwjR3amGoxrpkv pW9zBuy+OHZ0SVB4 SK78DD12L5PaEidoiPDb bGU+PHRhYmxlIHdpZHRo JLjrFTSpZzXjyUuuEV1y Ec7qGWKkLZHmmWxs cHNlOiBj (more content not included)... Normal [facility] PT - Assessmentson PT - Assessments [id number] #1.00CD:127 Normal [facility] PT - Consentson 10-14-2022 PT - Consents [id number] #1.00CD:127 [facility] Consent for Treatmenton Consent for Treatment [id number] #1.00CD:127 [facility] PT - [place] 10-13-2022 PT - Orders [id number] 78#1.00CD:127 [facility] CBC AUTO DIFFon 09-11-2022 BASO # 0.2 103/ul Critically high 0.0-0.1 [facility] Comment on above: Performed By: #### L IPID, CMP, URIC #### [facility] [address] [place] [address] Dr. Mark Macdonald Basophils/100 WBC (Bld) 1.6 % Normal 0.2-2.0 [facility] Comment on above: Performed By: #### L IPID, CMP, URIC #### [facility] [address] [place] [address] Dr. Mark Macdonald EO # 0.8 103/ul Critically high 0.0-0.7 [facility] Comment on above: Performed By: #### L IPID, CMP, URIC #### [facility] [address] [place] [address] Dr. Mark Macdonald Eosinophils/100 WBC (Bld) 7.4 % Critically high 0.9-7.0 [facility] Comment on above: Performed By: #### L IPID, CMP, URIC #### [facility] [address] [address] [address] Mark Macdonald Erythrocyte distribution width (RBC) [Ratio] 13.2 % Normal 11.0-15.0 [facility] Comment on above: Performed By: #### L IPID, CMP, URIC #### [facility] [address] [address] [address] Mark Macdonald Hematocrit (Bld) [Volume fraction] 45.9 % Normal 42.0-54.0 [facility] Comment on above: Performed By: #### L IPID, CMP, URIC #### [facility] [address] [address] [address] Mark Macdonald Hemoglobin (Bld) [Mass/Vol] 14.9 g/dL Normal 14.0-18.0 [facility] Comment on above: Performed By: #### L IPID, CMP, URIC #### [facility] [address] [address] [address] Mark Macdonald IG # 0.12 10e3/ul Critically high 0.00-0.03 [facility] Comment on above: Performed By: #### L IPID, CMP, URIC #### [facility] [address] [address] [address] Mark Macdonald IG % 1.1 % Critically high 0.0-0.5 [facility] Comment on above: Performed By: #### L IPID, CMP, URIC #### [facility] [address] [address] [address] Mark Macdonald LYMPH # 2.0 103/ul Normal 1.2-3.8 [facility] Comment on above: Performed By: #### L IPID, CMP, URIC #### [facility] [address] [address] [address] Mark Macdonald Lymphocytes/100 WBC (Bld) 19.1 % Critically low 20.5-60.0 [facility] Comment on above: Performed By: #### L IPID, CMP, URIC #### [facility] [address] [address] [address] Mark Macdonald MANUAL DIFF REQ NO Normal [facility] Comment on above: Performed By: #### L IPID, CMP, URIC #### [facility] [address] [address] [address] Mark Macdonald MCH (RBC) [Entitic mass] 30.8 pg Normal 25.9-34.0 [facility] Comment on above: Performed By: #### L IPID, CMP, URIC #### [facility] [address] [address] [address] Mark Macdonald MCHC (RBC) [Mass/Vol] 32.5 g/dL Normal 29.9-35.2 [facility] Comment on above: Performed By: #### L IPID, CMP, URIC #### [facility] [address] [place] [address] Dr. Mark Macdonald MCV (RBC) [Entitic vol] 94.8 fL Critically high 80.0-94.0 [facility] Comment on above: Performed By: #### L IPID, CMP, URIC #### [facility] [address] [place] [address] Dr. Mark Macdonald MONO # 0.9 103/ul Critically high 0.3-0.8 [facility] Comment on above: Performed By: #### L IPID, CMP, URIC #### [facility] [address] [place] [address] Dr. Mark Macdonald Monocytes/100 WBC (Bld) 8.8 % Normal 1.7-12.0 [facility] Comment on above: Performed By: #### L IPID, CMP, URIC #### [facility] [address] [place] [address] Dr. Mark Macdonald NEUT # 6.6 103/ul Critically high 1.4-6.5 [facility] Comment on above: Performed By: #### L IPID, CMP, URIC #### [facility] [address] [place] [address] Dr. Mark Macdonald Neutrophils/100 WBC (Bld) 62.0 % Normal 43.0-75.0 [facility] Comment on above: Performed By: #### L IPID, CMP, URIC #### [facility] [address] [address] [address] Mark Macdonald Platelet mean volume (Bld) [Entitic vol] 10.9 fL Normal 9.5-13.5 [facility] Comment on above: Performed By: #### L IPID, CMP, URIC #### [facility] [address] [address] [address] Mark Macdonald PLT 238 103/ul Normal 150-450 [facility] Comment on above: Performed By: #### L IPID, CMP, URIC #### [facility] [address] [address] [address] Mark Macdonald RBC 4.84 106/ul Normal 4.70-6.10 [facility] Comment on above: Performed By: #### L IPID, CMP, URIC #### [facility] [address] [address] [address] Mark Macdonald WBC 10.6 103/ul Normal 4.0-11.0 [facility] Comment on above: Performed By: #### L IPID, CMP, URIC #### [facility] [address] [place] [address] Dr. Mark Macdonald FREE T3on 09-11-2022 FREE T3 2.85 pg/mlL Normal 2.18-3.98 [facility] Comment on above: Performed By: #### C MP, FT3, T4, LIPID, TSH #### [facility] [address] [address] [address] Mark Macdonald GLYCOHEMOGLOBIN A1Con 2022 ADA RECOMMENDATION SEE BELOW Normal [facility] Comment on above: Result Comment: ADA RECOMMENDED LIMIT 4.0 - 6.0 ADA THERAPEUTIC TARGET < 7.0 ACTION SUGGESTED > 7.0 Performed By: #### L IPID, CMP, URIC #### [facility] [address] [address] [address] Mark Macdonald Glucose [Mass/Vol] 134 mg/dL Normal [facility] Comment on above: Performed By: #### L IPID, CMP, URIC #### [facility] [address] [place] [address] Dr. Mark Macdonald HbA1c (Bld) [Mass fraction] 6.3 % Critically high 4.5-6.2 [facility] Comment on above: Performed By: #### L IPID, CMP, URIC #### [facility] [address] [place] [address] Dr. Mark Macdonald LIPID PROFILEon 09-11-2022 CHOL-HDL RATIO NORM SEE BELOW Normal [facility] Comment on above: Result Comment: 3.3 - 4.4 LOW RISK 4.4 - 7.1 AVERAGE RISK 7.1 - 11.0 MODERATE RISK >11.0 HIGH RISK Performed By: #### C MP, FT3, T4, LIPID, TSH #### [facility] [address] [place] [address] Dr. Mark Macdonald Cholesterol [Mass/Vol] 154 mg/dL Normal <=200 [facility] Comment on above: Performed By: #### C MP, FT3, T4, LIPID, TSH #### [facility] [address] [place] [address] Dr. Mark Macdonald Cholesterol in HDL [Mass/Vol] 61 mg/dL Critically high 40-60 [facility] Comment on above: Performed By: #### C MP, FT3, T4, LIPID, TSH #### [facility] [address] [place] [address] Dr. Mark Macdonald Cholesterol in LDL [Mass/Vol] 80.4 mg/dL Normal [facility] Comment on above: Performed By: #### C MP, FT3, T4, LIPID, TSH #### [facility] [address] [place] [address] Dr. Mark Macdonald Cholesterol.total/Cho lesterol in HDL [Mass ratio] 2.5 {ratio} Normal [facility] Comment on above: Performed By: #### C MP, FT3, T4, LIPID, TSH #### [facility] [address] [place] [address] Dr. Mark Macdonald HDL NORMAL > or = 60 mg/dl - LOW CARDIOVASCULAR RISK <40 mg/dl - HIGH CARDIOVASCULAR RISK Normal [facility] Comment on above: Performed By: #### C MP, FT3, T4, LIPID, TSH #### [facility] [address] [address] [address] Mark Macdonald LDL CALC NORMAL SEE BELOW Normal [facility] Comment on above: Result Comment: <100 mg/dl OPTIMAL 100 - 129 mg/dl NEAR OR ABOVE OPTIMAL 130 - 159 mg/dl BORDERLINE HIGH 160 - 189 mg/dl HIGH >190 mg/dl VERY HIGH Performed By: #### C MP, FT3, T4, LIPID, TSH #### [facility] [address] [address] [address] Mark Macdonald Triglyceride [Mass/Vol] 63 mg/dL Normal <=150 [facility] Comment on above: Performed By: #### C MP, FT3, T4, LIPID, TSH #### [facility] [address] [place] [address] Dr. Mark Macdonald VLDL CALC 12.6 mg/dL Normal [facility] Comment on above: Performed By: #### C MP, FT3, T4, LIPID, TSH #### [facility] [address] [place] [address] Dr. Mark Macdonald PROF 14(COMP METB)on 023 Albumin [Mass/Vol] 3.8 g/dL Normal 3.4-5.0 [facility] Comment on above: Performed By: #### C MP, FT3, T4, LIPID, TSH #### [facility] [address] [place] [address] Dr. Mark Macdonald Albumin/Globulin [Mass ratio] 1.3 {ratio} Normal [facility] Comment on above: Performed By: #### C MP, FT3, T4, LIPID, TSH #### [facility] [address] [place] [address] Dr. Mark Macdonald ALP [Catalytic activity/Vol] 105 U/L Normal 46-116 [facility] Comment on above: Performed By: #### C MP, FT3, T4, LIPID, TSH #### [facility] [address] [place] [address] Dr. Mark Macdonald ALT [Catalytic activity/Vol] 20 U/L Normal 16-63 [facility] Comment on above: Performed By: #### C MP, FT3, T4, LIPID, TSH #### [facility] [address] [address] [address] Mark Macdonald Anion gap [Moles/Vol] 13.1 mmol/L Normal Th e [facility] Comment on above: Performed By: #### C MP, FT3, T4, LIPID, TSH #### [facility] [address] [place] [address] Dr. Mark Macdonald AST [Catalytic activity/Vol] 18 U/L Normal 15-37 [facility] Comment on above: Performed By: #### C MP, FT3, T4, LIPID, TSH #### [facility] [address] [place] [address] Dr. Mark Macdonald Bilirubin [Mass/Vol] 0.8 mg/dL Normal 0.2-1.0 [facility] Comment on above: Performed By: #### C MP, FT3, T4, LIPID, TSH #### [facility] [address] [place] [address] Dr. Mark Macdonald Calcium [Mass/Vol] 9.2 mg/dL Normal 8.5-10.1 [facility] Comment on above: Performed By: #### C MP, FT3, T4, LIPID, TSH #### [facility] [address] [place] [address] Dr. Mark Macdonald Chloride [Moles/Vol] 101 mmol/L Normal 98-107 [facility] Comment on above: Performed By: #### C MP, FT3, T4, LIPID, TSH #### [facility] [address] [place] [address] Dr. Mark Macdonald CO2 [Moles/Vol] 30.1 mmol/L Normal 21.0-32.0 [facility] Comment on above: Performed By: #### C MP, FT3, T4, LIPID, TSH #### [facility] [address] [place] [address] Dr. Mark Macdonald Creatinine [Mass/Vol] 1.24 mg/dL Normal 0.70-1.30 [facility] Comment on above: Performed By: #### C MP, FT3, T4, LIPID, TSH #### [facility] [address] [place] [address] Dr. Mark Macdonald EGFR-AF MONTENEGRIN >60 Normal >=60 [facility] Comment on above: Performed By: #### C MP, FT3, T4, LIPID, TSH #### [facility] [address] [place] [address] Dr. Mark Macdonald EGFR-NON AF MONTENEGRIN 58 mL/min/1.73m2 Critically low >=60 [facility] Comment on above: Performed By: #### C MP, FT3, T4, LIPID, TSH #### [facility] [address] [place] [address] Dr. Mark Macdonald Globulin (S) [Mass/Vol] 3.0 g/dL Normal [facility] Comment on above: Performed By: #### C MP, FT3, T4, LIPID, TSH #### [facility] [address] [place] [address] Dr. Mark Macdonald Glucose [Mass/Vol] 130 mg/dL Critically high 74-106 [facility] Comment on above: Performed By: #### C MP, FT3, T4, LIPID, TSH #### [facility] [address] [place] [address] Dr. Mark Macdonald Potassium [Moles/Vol] 5.2 mmol/L Critically high 3.5-5.1 [facility] Comment on above: Performed By: #### C MP, FT3, T4, LIPID, TSH #### [facility] [address] [place] [address] Dr. Mark Macdonald Protein [Mass/Vol] 6.8 g/dL Normal 6.4-8.2 [facility] Comment on above: Performed By: #### C MP, FT3, T4, LIPID, TSH #### [facility] [address] [place] [address] Dr. Mark Macdonald Sodium [Moles/Vol] 139 mmol/L Normal 136-145 [facility] Comment on above: Performed By: #### C MP, FT3, T4, LIPID, TSH #### [facility] [address] [place] [address] Dr. Mark Macdonald Urea nitrogen [Mass/Vol] 21.0 mg/dL Critically high 7.0-18.0 [facility] Comment on above: Performed By: #### C MP, FT3, T4, LIPID, TSH #### [facility] [address] [place] [address] Dr. Mark Macdonald Urea nitrogen/Creatinine [Mass ratio] 16.9 mg/mg Normal [facility] Comment on above: Performed By: #### C MP, FT3, T4, LIPID, TSH #### [facility] [address] [place] [address] Dr. Mark Macdonald T4on 09-11-2022 T4 [Mass/Vol] 7.80 ug/dL Normal 4.50-12.10 [facility] Comment on above: Performed By: #### C MP, FT3, T4, LIPID, TSH #### [facility] [address] [place] [address] Dr. Mark Macdonald TSHon 09-11-2022 TSH 2.031 uIU/mL Normal 0.358-3.740 [facility] Comment on above: Performed By: #### C MP, FT3, T4, LIPID, TSH #### [facility] [address] [place] [address] Dr. Mark Macdonald PT - Assessmentson 3 PT - Assessments [id number] 3#1.00CD:127 Normal [facility] PT - Home Exercise Programon 08-22-2022 PT - Home Exercise Program [id number] 5#1.00CD:127 [facility] PT - Progress Noteson 2022 PT - Progress Notes [id number] #1.00CD:127 [facility] PT - Assessmentson 3 PT - Assessments [id number] 3#1.00CD:127 [facility] PT - Assessmentson PT - Assessments [id number]# 1.00CD:127 [facility] PT - Home Exercise Programon 07-23-2022 PT - Home Exercise Program [id number] 4#1.00CD:127 [facility] PT - Home Exercise Program [id number]# 1.00CD:127 [facility] PT - Progress Noteson 2022 PT - Progress Notes [id number]# 1.00CD:127 [facility] PT - Progress Notes [id number]# 1.00CD:127 [facility] PT - Home Exercise Programon 07-11-2022 PT - Home Exercise Program [id number] 2#1.00CD:127 [facility] PT - Home Exercise Programon 07-08-2022 PT - Home Exercise Program [id number] 4#1.00CD:127 [facility] Coding Summary.on 07-03-2022 Coding Summary. CD:[id number] Gh0bWw+PGhlYWQ+PE1FV AVaY17kuEAyiB7QD2vYK O8XNYFQYSKLEE6LYQ2pm XD8DZkpL2NbpkDn WzzttCBlYI77PXt3NEP4 eRowHLjfrP5sjPBoU1y2 ZkCwGT98cM36MNqsBAHn DgK6ZuSjhhjamJGh E1ipUvIwiXYbHmv+PHRh YmxlIHdpZHRoPScxMDAl NqNbfMqeEA4fDf4wJFZp LWNvbGxhcHNlOiBj i5toCLJtJVqzSN1xjUom A4IlaAN7QUYuw0v6Tt68 dHI+FAFgPEJ3sEcbFQlp b389VyTit6arAGQ7 tFOnWIuxCOY4D36ev6L0 RXFnRTJzFGM0oFF7pV9i dVcglseqE7BnuTTcIlI0 MUB8xRMgdH8nkEgk hdlxyV2wKgu+M03KUQ0I OCERUU0OJad2M5MnEabv dHI+HA65LVFmPD10lSRl gYGya4gvhHn5VaKr HMOxHVM9pIemSCxal4Vf FOUrP67zlFMmb2R1BZFn jGgcjKLxYpPnpPP8lI0k VMgtptmcp3suexul Zcprl9dvhe57zE97T62m GDovJNSbALA7QEZuKRUk cSlnhy4ccQ0fOu5+IDxj c2oss1dgjHb8YbGs DADdugVciYviLPG1z0Ks Ij14E4HwdMqbd6XyNty8 sr09bGAfb0C0aSD1JNzb VROfhR9bBTgwAiP0 UQSnWsNtiS34mCZsREsz Il9gsVtcuKfyRU8zPTPi udlnGDAegJ9iIVDjiAEj jDydBO1eQFNazvsj n939YsCjEOJ3CDAepYGb Y8EkhK5pNmAeZEAvAVOn I3YbdBIaFCrhO304WVfn GpZ6XZAnmfAbL4Ch CTAzuJtsXgU4t9D8Kt6C s2QfstetSWN2JBaxUNZb CgY6QuVjDmP0D5EjQua6 XSDtrLnjIQ2aV7Go JCJkmdsqlpotlJJ8LDGu WHJzeP65dAJhWTtvCi6o n2R0c603HCXuGFDzoO89 Yb0fmGsiFREjgNRD wC9xlkdis1hdliguPkUg WIJiKWs3QVv7IWKqfPwe UrBdIKX1VgE4ASH1qCDv oM8wxUxuqrqabS6s Oyc+D95klK4eSTJ7JCZ1 ghmsXZLydwKhTX65ZA42 K7UvFaeobRAswGR+PGRp zlQhcCxuZM4kKvOn z0hnp9UjRFexQ4ClFAKi MXobVsh7QQMaREW5xJU9 lH0oWCLlMAusw1Z7iDC7 T8CyxfDcry8uc6kq NZWoEOqmN03wjURpq2N5 CBHsbHS9YQJtkVceUrDm sO09Txz+PXFvhEdbd9Oi Jlslj7gfc7snyQl1 IjMwJSIgdmFsaWduPSJ0 t2ZoMl50X04sEWkjXEZx XKPeNKEnZKKdiVxruk1v gB8sTo3+PGNvbCB3 qID6qS5sHDYxRrA8ZSyz O037DsTchJQfSlkmx4xz s3qheJe1DqVcYQBreuGi dBrnFFG1t7KbGn58 A01yZOziLZDkKIAqBPQy EQGtoKkopp1cdV7hWa6+ RZ5ih1ypku25hS00uSW+ VDIuVVU1hAmnYQrw WAIdmA6rFEudFmD0CVOo RlNdhG41fVZmPSubVp8p zAypiEcsAI4bTJWefebj b657SyNqu2vvBGHf zITgEIhpLHJ5S28sa8O5 PEYhVXVfQSF1iXJ8rJ6t bGlnbjogbGVmdDsgdmVy lStwIUyuEXrsF408 IHRvcDsnPlBhdGllbnQg QjWqSEl0A5DaUrn6UYAe vAxwLB4cfPMlWKwfPc8o pWynuIxxHJ9dLTRh zuhxt222GzEix5udGKRb nCFpWFbzGQM0L42dx4A0 SCUfIUFiGWZ6gLS5vH1k bGlnbjogbGVmdDsg imFwgZkzMYquAIhiQ683 IHRvcDsnPkJpcnRoIERh aCY0SH20PW79oJTcw0J7 nIP2Z1HpADMnmzrb fbaxvCB2BHNwDZXbqL14 Ey8gcSufCt0yENUjMCV3 ONSosBAnR2HieG0sSvVi QNHbYLPeA7SquZWx BJhgA741RTzqGaY0KYRd wdWjW6EuVHGxvTnkYhM9 x4A1Xk2DY8I8ON62WC67 iWRxz6T6sVV7X7Wx EJUsogmehdajzLU7WMMe USCdmU09Vc6iiBhwRs0b UVSfCGH5RTIncQWpW7Xq lU9mZcVtDFFxHAGr F0StgSBwSQghS019ZGkl YbX0MFRclmEnU9EpIBMm wEemOoD9u9H0Nl4WZFr1 HZ72OV70qYUfs8W8 eYB5G5NpDXFqsfruggbg fTH8MCMgPZPvzO04Ji8r nDosYo6aDNZeGHY9EBYm iRQsV0YbnP8kEnXy AYPiXDCbF5HzkBJqIZze M947WOlsDjE8PXBhpoXy P5EgBXZptOiaAoH8b5O8 Fq7JLITzBM47QKT1 pUO7KB71SM43F6IwBoyo dGFibGU+PHRhYmxlIHdp ZHRoPScxMDAlJyBzdHls CE6mIy2tMZFnKVIq hRdfiEBtJyJlr4lsHPWz QGwcOB6kcIdyW7UrhTE3 PBKoq0m5Gq39C69aY6Ec dXA+VNMibMY3qVE5 uR8xBlAaZbS8AEhpE361 PzDrlLLxKcfvb0spc4ym jNn4GvQ0HCLwpmMdpYty IAE8j7RnAu45A41h IHdpZHRoPSIxNSUiIHZh lZttmf3wtQ8qEl6+PGNv yXT8bEH0aE9kKkUlOqW8 EVnzD748EpGhiHRb Wbajd0rwa9vacLn2JhVg INQdfuKgyQbcOBN1u8Ya Wu02L0EmlXyxy9LqTzu7 kq52rYIjg3N0wBZ1 I1CwIIDvooixfFPyuJnk FP4jPMSnmmntNIXkeF9k ZNYdX8l5HzOgHlG9BMuu B0YipbQ2KNCsdXHe UMbiIXS6J82mk2H4DSVk RAGaRZB7aDX4cJ5dcGpr bjogbGVmdDsgdmVydGlj XKdsCEkwO210LLAv bEixUJPcdY1tOOXjwQZh oHpjMJ4wAKBfkdqxOuVS D4yRCmFsMTvGAGRTQWD4 Z7DzKob3EJGdyMln PV5qpGEgXNpvDi2aoCmz iCqzRH6sWOEavwxwBYKr yL5yUAYsjHIgwQenLB9f XGBezfrwe719CiNd YYF1QRImaPDlC8OsiK7w EoRxAZAgCRWnL4HhcZRk NYikD377PQegVxX4UBRu fjSxY1AjRUNxoShv BmZ9z3H0Ln0hFK8zGd3r QLWsQY27VD66nCOed7S3 fRG4P0LxHBKpagnpbfgw tYJ6JNSeEACmbP47 kYVnBQhwFx2nr9Z4k632 NUBpWEWqxA60Wx1ffTgo IPXubRIZpI5hjudga6jk cjogIzAwMDAwMDt0 EEh7NSFdxVzfFcCmHIH7 BiZ0ORD6iXKegZ8qoXka uqjmbL1pAvc+NjkgWWVh zjM9Q5WrViu2MKYp aKekNO5unMHqCJmwQj6m hFuusJdbTZ7eFMNcxszz QKHjhW0oHCZfvXEgaPff AO9vJIOfawbtt385 UxPvPBI4ZEFpfSKwS3Sp rU4bCbBbRNDjFILiT2De gBDlAYvnA366AIryWiT6 JUQqzcSrG8ZxXPAw pNchPjW8c1T7Yj2CPTph UZ23XG71bXKsp7Y3lKK8 I1BuIRYxqbukdeoafJA4 JOFaYMEhjQ68vBIu PZmzTp5qh7P7i181ZKRz NKIfpA72Jk0cwOemEVFo yHCElT6wuvmzc6zbbltl TzIwBGCvRWm7QCu2 QKIgqUuhGuChKOP1UeU4 WUX3eXOffM3maGywyatx dZ0hBnt+YhEabWEmxM0z FD39OE60Z6CzOkep dGFibGU+PHRhYmxlIHdp ZHRoPScxMDAlJyBzdHls YU2gDp7oMCHyWPBrdOzi yHTbYfLao1ksXFFa BWrnIJ3vxJzdT7FawSS5 AAAzn3t5Mo26W95gB2Lo dXA+PBOzfBU2aWT9qW6i FkCeInE4CQljV880 DeVpkIArHxlvs5pve1gw bNw5TsLuQXSwpfRziIhf YZI8z0MeNa36B66qRLuo ZHRoPSIyMCUiIHZh nYkdxd1bnG4aJs3+PGNv tDG2gWJ6yY8vMnDmOeD9 ZUcgD112OuUiwESjUavx P28xH1OguNO+PHRy Fqf5OJXreVsfAC7tcQLu GZlxLg1mTHH4PiObVfVn PWqeJ0GcEUPfzzlspens kBQ4NDVvBMJxnD94 Xh0fxVkzTz0kDTAvYLN2 IZBfkGCsP6DluH0pWtFh MPSvUDTlY1XkmFNzVDwp M658SQdiXmF4XWRi tnRiY1TlZPOyzPakOoM3 c4H3Xf5JhBptsUPsAZ5g ZkNdLDi3X3ZcWwp3QBLv pIaoOZ5bfMFdVWqk Ub7wiOjmcKjbWE7iRVDz hhpjg857CuYwq8gkOBCs bUHuCUcsSDD5N64hw8S6 IVPsYGWuBSN3fZG0 kF6zdPeosqkesAKpwVcw eqOowBafWOvpITulB063 KSScbPbwCmQSKft5C6Nl Izw2KIPnhFdaEZ7b gGHyYAjdBx2vgXazdZig PV6tUKIozzfyz736HqRm t2naFMQtvRPqMJagGIT6 M91tb6I0TOMwWHMx GWM0rVY6eF2prJquxydu bGVmdDsgdmVydGljYWwt JDdpV489MGIojJuwCf6Q Dsy7W4BvUeg4NSHp dWcwMP4yaWLsTWgcCc6y aZjksJcxPY7wCSOjsnpx p500YjKku0tpTOWhpTBz HRzmLZC6C20wd9B2 GRMbITCeWDI6uXI9nM1v bGlnbjogbGVmdDsgdmVy lEkqXKfcADjnD438BXPf cDsnPlBheWVyOjwv dGQ+BI09tv18A2TrWujy Qzr3VCZrKRE1fWZ3hB0v YVVbXEktc1A8bFZ9I9Ys fjIfvp9us7ikLYBd ZTog (more content not included)... Normal [facility] PT - Assessmentson PT - Assessments [id number] 4#1.00CD:127 Normal [facility] PT - Consentson 07-02-2022 PT - Consents [id number] 4#1.00CD:127 Normal [facility] Consent for Treatmenton 06-15 Consent for Treatment [id number] #1.00CD:127 [facility] PT - [place] 06-30-2022 PT - Orders [id number] #1.00CD:127 [facility] PT - Orders [id number] #1.00CD:127 [facility] PT - Assessmentson PT - Assessments [id number] 5#1.00CD:127 [facility] PT - [place] 05-30-2022 PT - Orders [id number] 4#1.00CD:127 [facility] INSULINon 05-23-2022 Insulin 40.4 uIU/mL Critically high 2.6-24.9 [facility] Comment on above: Performed By: #### I NSULIN #### [facility] [address] [place] [address] Dr. Mark Macdonald CBC AUTO DIFFon 05-22-2022 BASO # 0.2 103/ul Critically high 0.0-0.1 [facility] Comment on above: Performed By: #### L IPID, CMP, URIC #### [facility] [address] [place] [address] Dr. Mark Macdonald Basophils/100 WBC (Bld) 1.4 % Normal 0.2-2.0 [facility] Comment on above: Performed By: #### L IPID, CMP, URIC #### [facility] [address] [place] [address] Dr. Mark Macdonald EO # 0.6 103/ul Normal 0.0-0.7 [facility] Comment on above: Performed By: #### L IPID, CMP, URIC #### [facility] [address] [address] [address] Mark Macdonald Eosinophils/100 WBC (Bld) 5.5 % Normal 0.9-7.0 [facility] Comment on above: Performed By: #### L IPID, CMP, URIC #### [facility] [address] [place] [address] Dr. Mark Macdonald Erythrocyte distribution width (RBC) [Ratio] 14.0 % Normal 11.0-15.0 [facility] Comment on above: Performed By: #### L IPID, CMP, URIC #### [facility] [address] [place] [address] Dr. Mark Macdonald Hematocrit (Bld) [Volume fraction] 46.3 % Normal 42.0-54.0 [facility] Comment on above: Performed By: #### L IPID, CMP, URIC #### [facility] [address] [place] [address] Dr. Mark Macdonald Hemoglobin (Bld) [Mass/Vol] 15.3 g/dL Normal 14.0-18.0 [facility] Comment on above: Performed By: #### L IPID, CMP, URIC #### [facility] [address] [place] [address] Dr. Mark Macdonald IG # 0.20 10e3/ul Critically high 0.00-0.03 [facility] Comment on above: Performed By: #### L IPID, CMP, URIC #### [facility] [address] [place] [address] Dr. Mark Macdonald IG % 1.8 % Critically high 0.0-0.5 [facility] Comment on above: Performed By: #### L IPID, CMP, URIC #### [facility] [address] [place] [address] Dr. Mark Macdonald LYMPH # 2.4 103/ul Normal 1.2-3.8 [facility] Comment on above: Performed By: #### L IPID, CMP, URIC #### [facility] [address] [place] [address] Dr. Mark Macdonald Lymphocytes/100 WBC (Bld) 21.6 % Normal 20.5-60.0 [facility] Comment on above: Performed By: #### L IPID, CMP, URIC #### [facility] [address] [place] [address] Dr. Mark Macdonald MANUAL DIFF REQ NO Normal [facility] Comment on above: Performed By: #### L IPID, CMP, URIC #### [facility] [address] [place] [address] Dr. Mark Macdonald MCH (RBC) [Entitic mass] 32.3 pg Normal 25.9-34.0 [facility] Comment on above: Performed By: #### L IPID, CMP, URIC #### [facility] [address] [place] [address] Dr. Mark Macdonald MCHC (RBC) [Mass/Vol] 33.0 g/dL Normal 29.9-35.2 [facility] Comment on above: Performed By: #### L IPID, CMP, URIC #### [facility] [address] [place] [address] Dr. Mark Macdonald MCV (RBC) [Entitic vol] 97.7 fL Critically high 80.0-94.0 [facility] Comment on above: Performed By: #### L IPID, CMP, URIC #### [facility] [address] [place] [address] Dr. Mark Macdonald MONO # 1.2 103/ul Critically high 0.3-0.8 [facility] Comment on above: Performed By: #### L IPID, CMP, URIC #### [facility] [address] [place] [address] Dr. Mark Macdonald Monocytes/100 WBC (Bld) 10.6 % Normal 1.7-12.0 [facility] Comment on above: Performed By: #### L IPID, CMP, URIC #### [facility] [address] [place] [address] Dr. Mark Macdonald NEUT # 6.6 103/ul Critically high 1.4-6.5 [facility] Comment on above: Performed By: #### L IPID, CMP, URIC #### [facility] [address] [address] [address] Mark Macdonald Neutrophils/100 WBC (Bld) 59.1 % Normal 43.0-75.0 [facility] Comment on above: Performed By: #### L IPID, CMP, URIC #### [facility] [address] [address] [address] Mark Macdonald Platelet mean volume (Bld) [Entitic vol] 10.5 fL Normal 9.5-13.5 [facility] Comment on above: Performed By: #### L IPID, CMP, URIC #### [facility] [address] [address] [address] Mark Macdonald PLT 212 103/ul Normal 150-450 [facility] Comment on above: Performed By: #### L IPID, CMP, URIC #### [facility] [address] [place] [address] Dr. Mark Macdonald RBC 4.74 106/ul Normal 4.70-6.10 [facility] Comment on above: Performed By: #### L IPID, CMP, URIC #### [facility] [address] [place] [address] Dr. Mark Macdonald WBC 11.2 103/ul Critically high 4.0-11.0 [facility] Comment on above: Performed By: #### L IPID, CMP, URIC #### [facility] [address] [place] [address] Dr. Mark Macdonald GLYCOHEMOGLOBIN A1Con 2021 ADA RECOMMENDATION SEE BELOW Normal [facility] Comment on above: Result Comment: ADA RECOMMENDED LIMIT 4.0 - 6.0 ADA THERAPEUTIC TARGET < 7.0 ACTION SUGGESTED > 7.0 Performed By: #### L IPID, CMP, URIC #### [facility] [address] [place] [address] Dr. Mark Macdonald Glucose [Mass/Vol] 126 mg/dL Normal [facility] Comment on above: Performed By: #### L IPID, CMP, URIC #### [facility] [address] [place] [address] Dr. Mark Macdonald HbA1c (Bld) [Mass fraction] 6.0 % Normal 4.5-6.2 [facility] Comment on above: Performed By: #### L IPID, CMP, URIC #### [facility] [address] [address] [address] Mark Macdonald LIPID PROFILEon 05-22-2022 CHOL-HDL RATIO NORM SEE BELOW Normal [facility] Comment on above: Result Comment: 3.3 - 4.4 LOW RISK 4.4 - 7.1 AVERAGE RISK 7.1 - 11.0 MODERATE RISK >11.0 HIGH RISK Performed By: #### L IPID, CMP, URIC #### [facility] [address] [address] [address] Mark Macdonald Cholesterol [Mass/Vol] 144 mg/dL Normal <=200 [facility] Comment on above: Performed By: #### L IPID, CMP, URIC #### [facility] [address] [address] [address] Mark Macdonald Cholesterol in HDL [Mass/Vol] 68 mg/dL Critically high 40-60 [facility] Comment on above: Performed By: #### L IPID, CMP, URIC #### [facility] [address] [address] [address] Mark Macdonald Cholesterol in LDL [Mass/Vol] 62.2 mg/dL Normal [facility] Comment on above: Performed By: #### L IPID, CMP, URIC #### [facility] [address] [address] [address] Mark Macdonald Cholesterol.total/Cho lesterol in HDL [Mass ratio] 2.1 {ratio} Normal [facility] Comment on above: Performed By: #### L IPID, CMP, URIC #### [facility] [address] [address] [address] Mark Macdonald HDL NORMAL > or = 60 mg/dl - LOW CARDIOVASCULAR RISK <40 mg/dl - HIGH CARDIOVASCULAR RISK Normal [facility] Comment on above: Performed By: #### L IPID, CMP, URIC #### [facility] [address] [address] [address] Mark Macdonald LDL CALC NORMAL SEE BELOW Normal [facility] Comment on above: Result Comment: <100 mg/dl OPTIMAL 100 - 129 mg/dl NEAR OR ABOVE OPTIMAL 130 - 159 mg/dl BORDERLINE HIGH 160 - 189 mg/dl HIGH >190 mg/dl VERY HIGH Performed By: #### L IPID, CMP, URIC #### [facility] [address] [address] [address] Mark Macdonald Triglyceride [Mass/Vol] 69 mg/dL Normal <=150 [facility] Comment on above: Performed By: #### L IPID, CMP, URIC #### [facility] [address] [address] [address] Mark Macdonald VLDL CALC 13.8 mg/dL Normal [facility] Comment on above: Performed By: #### L IPID, CMP, URIC #### [facility] [address] [address] [address] Mark Macdonald PROF 14(COMP METB)on 022 Albumin [Mass/Vol] 3.9 g/dL Normal 3.4-5.0 [facility] Comment on above: Performed By: #### L IPID, CMP, URIC #### [facility] [address] [address] [address] Mark Macdonald Albumin/Globulin [Mass ratio] 1.3 {ratio} Normal [facility] Comment on above: Performed By: #### L IPID, CMP, URIC #### [facility] [address] [address] [address] Mark Macdonald ALP [Catalytic activity/Vol] 101 U/L Normal 46-116 [facility] Comment on above: Performed By: #### L IPID, CMP, URIC #### [facility] [address] [address] [address] Mark Macdonald ALT [Catalytic activity/Vol] 16 U/L Normal 16-63 [facility] Comment on above: Performed By: #### L IPID, CMP, URIC #### [facility] [address] [address] [address] Mark Macdonald Anion gap [Moles/Vol] 10.8 mmol/L Normal [facility] Comment on above: Performed By: #### L IPID, CMP, URIC #### [facility] [address] [address] [address] Mark Macdonald AST [Catalytic activity/Vol] 21 U/L Normal 15-37 [facility] Comment on above: Performed By: #### L IPID, CMP, URIC #### [facility] [address] [address] [address] Mark Macdonald Bilirubin [Mass/Vol] 0.5 mg/dL Normal 0.2-1.0 [facility] Comment on above: Performed By: #### L IPID, CMP, URIC #### [facility] [address] [place] [address] Dr. Mark Macdonald Calcium [Mass/Vol] 8.5 mg/dL Normal 8.5-10.1 [facility] Comment on above: Performed By: #### L IPID, CMP, URIC #### [facility] [address] [place] [address] Dr. Mark Macdonald Chloride [Moles/Vol] 101 mmol/L Normal 98-107 [facility] Comment on above: Performed By: #### L IPID, CMP, URIC #### [facility] [address] [place] [address] Dr. Mark Macdonald CO2 [Moles/Vol] 26.2 mmol/L Normal 21.0-32.0 [facility] Comment on above: Performed By: #### L IPID, CMP, URIC #### [facility] [address] [place] [address] Dr. Mark Macdonald Creatinine [Mass/Vol] 1.14 mg/dL Normal 0.70-1.30 [facility] Comment on above: Performed By: #### L IPID, CMP, URIC #### [facility] [address] [place] [address] Dr. Mark Macdonald EGFR-AF MONTENEGRIN >60 Normal >=60 [facility] Comment on above: Performed By: #### L IPID, CMP, URIC #### [facility] [address] [place] [address] Dr. Mark Macdonald EGFR-NON AF MONTENEGRIN >60 Normal >=60 [facility] Comment on above: Performed By: #### L IPID, CMP, URIC #### [facility] [address] [address] [address] Mark Macdonald Globulin (S) [Mass/Vol] 3.1 g/dL Normal [facility] Comment on above: Performed By: #### L IPID, CMP, URIC #### [facility] [address] [address] [address] Mark Macdonald Glucose [Mass/Vol] 119 mg/dL Critically high 74-106 [facility] Comment on above: Performed By: #### L IPID, CMP, URIC #### [facility] [address] [address] [address] Mark Macdonald Potassium [Moles/Vol] 5.0 mmol/L Normal 3.5-5.1 [facility] Comment on above: Performed By: #### L IPID, CMP, URIC #### [facility] [address] [place] [address] Dr. Mark Macdonald Protein [Mass/Vol] 7.0 g/dL Normal 6.4-8.2 [facility] Comment on above: Performed By: #### L IPID, CMP, URIC #### [facility] [address] [place] [address] Dr. Mark Macdonald Sodium [Moles/Vol] 133 mmol/L Critically low 136-145 [facility] Comment on above: Performed By: #### L IPID, CMP, URIC #### [facility] [address] [address] [address] Mark Macdonald Urea nitrogen [Mass/Vol] 30.0 mg/dL Critically high 7.0-18.0 [facility] Comment on above: Performed By: #### L IPID, CMP, URIC #### [facility] [address] [place] [address] Dr. Mark Macdonald Urea nitrogen/Creatinine [Mass ratio] 26.3 mg/mg Normal [facility] Comment on above: Performed By: #### L IPID, CMP, URIC #### [facility] [address] [address] [address] Mark Macdonald URIC ACID SERUMon 05-22-2022 Urate [Mass/Vol] 5.1 mg/dL Normal 3.5-7.2 [facility] Comment on above: Performed By: #### L IPID, CMP, URIC #### [facility] [address] [address] [address] Mark Macdonald PT - Assessmentson PT - Assessments [id number] 0#1.00CD:127 [facility] PT - Home Exercise Programon 05-06-2022 PT - Home Exercise Program [id number] 0#1.00CD:127 [facility] Encounters Encounter Date Encounter Type Care Provider Facility Start: 12-29-2022 End: 04-15-2023 ambulatory WALE CALIX Facility:[facility] Start: 10-13-2022 End: 12-30-2022 ambulatory WALE CALIX Facility:[facility] Start: 09-17-2022 Encounter for preprocedural laboratory examination DR GEORGI BETTS . [facility] Start: 09-11-2022 End: 09-12-[address] GEORGI BETTS . Facility: Start: 09-11-2022 End: 09-12-2022 Encounter for preprocedural laboratory examination DR GEORGI BETTS . Facility: Start: 06-30-2022 End: 11-20-2022 ambulatory WALE CALIX Facility:[facility] Start: 06-30-2022 End: 11-19-2022 Admission to same day surgery center WALE CALIX [facility] Start: 05-22-2022 End: 05-23-[address] GEORGI BETTS . Facility: Procedures Date Procedure Procedure Detail Performing Clinician Start: 05-22-[address] KARLOS BETTS . Comment on above: Performed By: #### P SASC #### [facility] [address] [address] [address] Mark Macdonald Start: 05-20-2018 Inguinal hernia (disorder) WALE CALIX Comment on above: left Cataract extraction and insertion of intraocular lens WALE CALIX Comment on above: omayra right inguinal herni a repair with mesh WALE CALIX Payers Date Payer Category Payer Medicare [id number] 1961 Unknown [id number] 1961 Unknown [id number] 1955 Unknown [id number] 2.16.84 [id number] 1955 Unknown [id number] 2.16.84 [id number] 1955 Unknown [id number] 2.16.8 [id number] 1953 Unknown [id number] 2.16.8 [id number] 1953 Unknown [id number] 2.16.8 [id number] Social History Date Type Detail Facility Tobacco smoking status No Smoking Status Entered [facility] Sex Assigned At Male [facility] Evaluation + Plan note Note Date & Type Note Facility Evaluation + Plan note Future Appointments Appointment Date:11/20/2022 09:30:00 AM Scheduled Provider: Location:[facility] [place] Appointment Type:PT 45 (FT) Appointment Date:11/24/2022 10:15:00 AM Scheduled Provider: Location:[facility] [place] Appointment Type:PT Re-Eval 45 (FT) [facility] Hospital course Narrative Note Date & Type Note Facility Hospital course Narrative No data available for this section [facility] Hospital Discharge instructions Note Date & Type Note Facility Hospital Discharge instructions No data available for this section [facility] Progress note Note Date & Type Note Facility Progress note No data available for this section [facility] Summary Purpose Family History No Family History Records FoundNo Family History Records Found Advance Directives No Advanced Directives Records FoundNo Advanced Directives Records Found Additional Source Comments (unrecognized sect ion and content) No Status Records FoundNo Status Records Found INFORMATION SOURCE (unrecogn ized section and content) DATE CREATED AUTHOR 09/19/2022 [facility] DATE CREATED AUTHOR AUTHOR'S ORGANIZ ATION [facility] team informatio n (unrecognized section and content) Personnel Name: Georgi Betts MD Address: Address: [address] [place] [address] FOR RECORDS PERTAINING TO PATIENTS WHO ARE [...] ON THE PRIMARY CLINICAL RECORDS. [facility]. provides no warranty or guarantee of the accuracy or completeness of information in this document.
[2024-12-13 07:28] LABS: Hematocrit 47.7 % (42.0-54.0); Hemoglobin 16.1 g/dL (14.0-18.0); Immature Granulocytes Abs Auto 0.17 10^3/uL (0.00-0.03); Immature Granulocytes Pct Auto 1.5 % (0.0-0.5); Lymphocytes Absolute Auto 2.5 10^3/uL (1.2-3.8); Mean Corpuscular HGB Conc 33.8 g/dL (29.9-35.2); Mean Corpuscular Hemoglobin 33.3 pg (25.9-34.0); Mean Corpuscular Volume 98.8 fL (80.0-94.0); Platelet Count 195 10^3/uL (150-450); Red Blood Count 4.83 10^6/uL (4.70-6.10); White Blood Count 11.2 10^3/uL (4.0-11.0)
[2024-12-13 08:46] LABS: Alanine Aminotransferase 25 U/L (16-63); Albumin Globulin Ratio 1.2; Albumin Level 3.6 g/dL (3.4-5.0); Alkaline Phosphatase 82 U/L (46-116); Anion Gap 16.1; Aspartate Amino Transferase 23 U/L (15-37); Blood Urea Nitrogen 27.0 mg/dL (7.0-18.0); Calcium 9.0 mg/dL (8.5-10.1); Carbon Dioxide 25.2 mmol/L (21.0-32.0); Chloride 101 mmol/L (98-107); Cholesterol 146 mg/dL (<=200); Estimated GFR (African America >60 (>=60 mL/min/1.73m^2); Estimated GFR (Non-African Ame >60 (>=60 mL/min/1.73m^2); Free T3 3.66 pg/mL (2.18-3.98); Globulin 3.1 g/dL; Glucose 112 mg/dL (74-106); HDL Cholesterol 78 mg/dL (40-60); Potassium 4.3 mmol/L (3.5-5.1); Sodium 138 mmol/L (136-145); Thyroid Stimulating Hormone 1.724 uIU/mL (0.358-3.740); Total Protein 6.7 g/dL (6.4-8.2); Triglycerides 38 mg/dL (<=150); Uric Acid 6.6 mg/dL (3.5-7.2); VLDL CHOLESTEROL 7.6 mg/dL
== END 2024-12-13 07:08 | disposition home or self-care (01) ==
LOC: LAB 07:08
PROVIDERS: PCP Family Medicine; Visit Provider Family Medicine
DX: R53.83 Other fatigue (principal); M17.9 Osteoarthritis of knee, unspecified; I10 Essential (primary) hypertension; E78.00 Pure hypercholesterolemia, unspecified; R73.09 Other abnormal glucose; E03.9 Hypothyroidism, unspecified
CPT/HCPCS: 36415; 80053; 80061; 83036; 84436; 84443; 84481; 84550; 85025; G0103